=== PATIENT | male | born 1990 | race Caucasian/White ===

== ENCOUNTER → 2024-10-23 | Outpatient (CLI) | payer BC, SELFPAY ==
[2024-10-23 09:04] LABS: Microalbumin,Random Urine < 12.0 mg/L (NO RANGE EST.); Microalbumin:Creatinine Ratio UNABLE TO CALCULATE mg/g CRE
[2024-10-23 09:29] LABS: ALB/GLOB Ratio 1.6 RATIO (0.9-2.4); AST(SGOT) 16 U/L (<=37); Alanine Aminotransfer ALT/SGPT 21 U/L (<=46); Albumin, Serum 4.3 g/dL (3.5-5.0); Alkaline Phosphatase 81 U/L (40-129); Anion Gap 8 (5-15); BUN 15 mg/dL (4-19); BUN/Creat Ratio 18.1 RATIO (10-20); Carbon Dioxide 25.3 mmol/L (21.0-32.0); Chloride 104 mmol/L (98-108); Cholesterol 133 mg/dL (<=200); Creatinine, Serum 0.83 mg/dL (0.70-1.20); EST Glomerular Filtration Rate 119 (>60); Globulin 2.6 g/dL (2.2-4.2); Glucose 260 mg/dL (70-99); High Density Lipoprotein 48 mg/dL; Low Density Lipoprotein Calc. 68 mg/dL; Potassium 4.6 mmol/L (3.3-5.1); Protein, Total 6.9 g/dL (5.9-8.4); Sodium Level 138 mmol/L (133-145); Triglycerides 85 mg/dL; Very Low Density Lipoprotein 17 mg/dL (5-40); Vitamin D,25 Hydroxy 18.3 ng/mL (30-100); cholesterol:hdl ratio screen 2.75
== END | disposition home or self-care (01) ==
PROVIDERS: PCP Nurse Practitioner Adult Health; Referring Provider Nurse Practitioner Family; Visit Provider Nurse Practitioner Family
DX: E10.65 Type 1 diabetes mellitus with hyperglycemia (principal)
CPT/HCPCS: 36415; 80053; 80061; 82043; 82306; 82570; 84443

== ENCOUNTER 2025-05-07 22:38 | Emergency (ER) | payer BC, SELFPAY ==
[2025-05-07 22:43] VITALS: BP 133/73; PULSE 85; RESP 16; TEMP 36.8; O2SAT 100; BMI 24.3
--- OUTSIDE RECORDS SUMMARY | 2025-05-07 23:35 | XMS RPT_ITS | CCD ---
Author Organization [facility] Care Team Providers Care [address] Justice Name Role Phone YonyFiora Unavailable Unavailable PROVIDER, UNKNOWN Unavailable Unavailable No, PCP Unavailable Unavailable SEFFENS DEFENSE TRAVEL ADMINISTRATOR-PERSON INVESTIGATOR, SONNY Primary Care Physician PHYSICIAN, NOT RECORDED Primary Care Physician Meet LAYTON MD, MEGHA Attending Unavaila ble PHYSICIAN, NOT RECORDED Primary Care Unavaila ble SEFF[employer] TRAVEL ADMINISTRATOR-PERSON INVESTIGATOR, SONNY Primary Care Sabina LAYTON MD, MEGHA Attending Unavaila ble SEFF[employer] TRAVEL ADMINISTRATOR-PERSON INVESTIGATOR, SONNY Primary Care Sabina LAYTON MD, MEGHA Attending Unavaila ble MAST DEFENSE TRAVEL ADMINISTRATOR-PERSON INVESTIGATOR, HERBERTH Primary Care Physician [phone] MAST DEFENSE TRAVEL ADMINISTRATOR-PERSON INVESTIGATOR, HERBERTH Primary Care Unavailabl e HALLE DEFENSE TRAVEL ADMINISTRATOR-PERSON INVESTIGATOR, BIJUEDA Attending Unavailab le HALLE DEFENSE TRAVEL ADMINISTRATOR-PERSON INVESTIGATOR, BIJUEDA Attending Unavailab le MAST DEFENSE TRAVEL ADMINISTRATOR-PERSON INVESTIGATOR, HERBERTH Primary Care Unavailabl e MAST HAND RIGGER, HERBERTH Primary Care Provider [phone] MAST HAND RIGGER, HERBERTH Referring Provider Roberto LETTER CARRIER-CMiguelina Attending Provider MAST, HERBERTH Primary Care Unavailable MAST, HERBERTH Referring Unavailable Miguelina Mejia Attending Unavailable MAST, HERBERTH Primary Care Unavailable MAST, HERBERTH Referring Unavailable Miguelina Mejia Attending Unavailable Miguelina Mejia Referring Unavailable MAST, HERBERTH Primary Care Unavailable Miguelina Mejia Attending Unavailable MAST, HERBERTH Primary Care Unavailable MAST, HERBERTH Referring Unavailable Miguelina Mejia Attending Unavailable MAST HAND RIGGER, HERBERTH Primary Care Physician MAST HAND RIGGER, HERBERTH Referring Provider [phone] Roberto MAIN-Miguelina Soliman Attending Physician [phone] Allergies Allergy Classification Reported Allergen(s) Allergy Type Date of Onset Reaction(s) Facility (7 sources) Penicillin; Translations: [penicillin] Drug Allergy [facility] (4 sources) Sulfonamides (Antibiotic); Translations: [sulfa drugs] Drug allergy [facility] (3 sources) Sulfonamide; Translations: [sulfa drugs] Drug allergy [facility] (2 sources) Penicillins Allergy to substance 5 [facility] (2 sources) Sulfonamides (Antibiotic) Allergy to substance 5 [facility] (1 source) Penicillins Drug allergy (disorder) 5 [facility] (1 source) Sulfonamides (Antibiotic) Drug allergy (disorder) 5 [facility] Medications Current Medications Medication Drug Class(es) Dates Sig (Normalized) Sig (Original) Blood Glucose Test Machine (5 sources) Start: 01-08-2021 Blood Glucose Test Machine See Instructions, Dispense 1, # 1 EA, 0 Refill(s), Pharmacy: [address], Diabetes, 173, cm, 01/08/21 15:11:00 EDT, Height, 91.7, kg, 01/08/21 15:11:00 EDT, Dosing Weight Start Date: 01/08/21 Status: Ordered Blood-Glucose Sensor (Dexcom G6 Sensor) device (1 source) Start: 03-26-2025 Blood-Glucose Sensor (Dexcom G6 Sensor) device Active 0 .Route 9 March 25, 2025 11:00pm Type 1 diabetes mellitus with hyperglycemia Type 1 diabetes mellitus with hyperglycemia 1 sensor q 10 days Blood-Glucose Transmitter (Dexcom G6 Transmitter) device (1 source) Start: 03-26-2025 Blood-Glucose Transmitter (Dexcom G6 Transmitter) device Active 0 .Route 1 March 25, 2025 11:00pm Type 1 diabetes mellitus with hyperglycemia Type 1 diabetes mellitus with hyperglycemia 1 transmitter q 90 days cholecalciferol 1.25 mg oral capsule (3 sources) Vitamin D Start: 03-29-2025 take 1 capsule by mouth once Start: 10-23-2024 End: 03-29-2025 take 1 capsule by mouth every week Cholecalciferol (Vitamin D3) 1,250 mcg (50,000 unit) capsule Discontinued 1250 ug PO EVERY WEEK 12 January 08, 2025 12:16pm March 29, 2025 11:39am Vitamin d deficiency Vitamin D deficiency, unspecified DME [facility] (5 sources) Start: 11-04-2023 DME MISCellane ous See Instructions, freestyle sarbjit 3 sensors 1 sensor every 14 days #2 sensors for 28 days and 2 refill., # 1 EA, 0 Refill(s), Pharmacy: [facility] #[id number], 173.3, cm, 11/04/23 8:08:00 EDT, Height, 70.04, kg, 11/04/23 8:08:00 EDT, Dosing Weight Start Date: 11/04/23 Status: Ordered Start: 03-27-2022 DME MISCellane ous See Instructions, freestyle sarbjit 3 sensors 1 sensor every 14 days #2 sensors for 28 days and 2 refill., # 1 EA, 0 Refill(s), Pharmacy: [facility] #[id number], 175, cm, 03/26/22 15:09:00 EDT, Height, 76.3, kg, 03/26/22 15:15:00 EDT, Dosing Weight Start Date: 03/27/22 Status: Ordered 3 ml insulin degludec 100 unt/ml pen injector (3 sources) Insulin Analog Start: 07-20-2024 Insulin Deglud ec (Tresiba Flextouch U-100) 100 unit/mL (3 mL) insulin pen Active 15 U SC AT BEDTIME July 20, 2024 12:00am Complies with drug therapy Start: 11-04-2023 inject 1 dose by sub cutaneous injection once daily Tresiba FlexTouch 100 units/mL 3 mL subcutaneous solution Dose : 15 unit(s) =, Subcutaneous, qDay, # 3 EA, 1 Refill(s), Pharmacy: [facility] #[id number], 173.3, cm, 11/04/23 8:08:00 EDT, Height, kg, 11/04/23 8:08:00 EDT, Dosing Weight Start Date: 11/04/23 Status: Ordered Start: 03-26-2022 inject 1 dose by sub cutaneous injection once daily Tresiba FlexTouch 100 units/mL 3 mL subcutaneous solution Dose : 8 unit(s) =, Subcutaneous, qDay, # 10 mL, 0 Refill(s), other reason (Rx) Start Date: 03/26/22 Status: Ordered Insulin Degludec (Tresiba Flextouch U-100) 100 unit/mL (3 mL) insulin pen (1 source) Start: 07-20-2024 Insulin Deglud ec (Tresiba Flextouch U-100) 100 unit/mL (3 mL) insulin pen Active 15 U SC AT BEDTIME July 20, 2024 1:00am insulin lispro 100 unt/ml injectable solution (4 sources) Insulin Analog Start: 11-03-2024 Insulin Lispro (Humalog U-100 Insulin) 100 unit/mL solution Active 60 U SC daily 50 2 November 02, 2024 11:00pm via insulin pump Complies with drug therapy Start: 07-20-2024 End: 11-03-2024 Insulin Lispro (Humalog Kwik pen Insulin) 100 unit/mL insulin pen Discontinued 4 U SC THREE TIMES A DAY July 20, 2024 12:00am November 03, 2024 3:24pm Start: 11-04-2023 inject 1 dose by sub cutaneous injection three times daily HumaLOG KwikPen 100 units/mL injectable PEN Dose : 4 unit(s) =, Subcutaneous, TID, # 5 EA, 1 Refill(s), 3 mL PEN, [facility]acy: [facility] #[id number], 173.3, cm, 11/04/23 8:08:00 EDT, Height, kg, 11/04/23 8:08:00 EDT, Dosing Weight Start Date: 11/04/23 Status: Ordered Insulin Director Treasurer Cart,Aut,G6/7,Cn tr (Omnipod 5 G6-G7 Intro Kt(Gen5)) cartridge (2 sources) Start: 08-28-2024 Insulin Director Treasurer Ca rt,Aut,G6/7,Cntr (Omnipod 5 G6-G7 Intro Kt(Gen5)) cartridge Active 0 .Route 1 August 27, 2024 11:00pm Type 1 diabetes mellitus with hyperglycemia Type 1 diabetes mellitus with hyperglycemia As directed Start: 08-28-2024 Insulin Director Treasurer Ca rt,Aut,G6/7,Cntr (Omnipod 5 G6-G7 Intro Kt(Gen5)) cartridge Active 0 .Route 1 August 28, 2024 12:00am As directed Insulin Director Treasurer Cart,Bt,G6/L2-Cn tr (Omnipod 5 Intro(G6/Yeyvd4qtlr)) cartridge (2 sources) Start: 07-20-2024 Insulin Director Treasurer Ca rt,Bt,G6/L2-Cntr (Omnipod 5 Intro(G6/Kbcbq3kenb)) cartridge Active 0 .Route 1 July 20, 2024 12:00am Type 1 diabetes mellitus with hyperglycemia Type 1 diabetes mellitus with hyperglycemia As directed Start: 07-20-2024 Insulin Director Treasurer Ca rt,Bt,G6/L2-Cntr (Omnipod 5 Intro(G6/Enbzw6fqut)) cartridge Active 0 .Route 1 July 20, 2024 1:00am As directed Insulin Pump Cart,Auto,Bt,G6 /7 (Omnipod 5 G6-G7 Pods (Gen 5)) cartridge (3 sources) Start: 02-28-2025 Insulin Pump C art,Auto,Bt,G6/7 (Omnipod 5 G6-G7 Pods (Gen 5)) cartridge Active 0 .Route 10 February 28, 2025 2:43pm Type 1 diabetes mellitus with hyperglycemia Type 1 diabetes mellitus with hyperglycemia 1 pod every 72 hours Start: 07-20-2024 End: 02-28-2025 Insulin Pump Cart,Auto,Bt,G6 /7 (Omnipod 5 G6-G7 Pods (Gen 5)) cartridge Discontinued 0 .Route 03 11July 20, 2024 12:00am February 28, 2025 2:43pm Type 1 diabetes mellitus with hyperglycemia Type 1 diabetes mellitus with hyperglycemia 1 pod every 72 hours Start: 07-20-2024 Insulin Pump C art,Auto,Bt,G6/7 (Omnipod 5 G6-G7 Pods (Gen 5)) cartridge Active 0 .Route July 20, 2024 1:00am 1 pod every 72 hours Completed/Discontinued Medications Medication Drug Class(es) Dates Sig (Normalized) Sig (Original) Blood-Glucose Sensor (Dexcom G7 Sensor) device (3 sources) Start: 02-15-2025 End: 03-26-2025 Blood-Glucose Sensor (Dexcom G7 Sensor) device Discontinued 0 .Route 9 February 15, 2025 8:12am March 26, 2025 12:45pm Type 1 diabetes mellitus with hyperglycemia Type 1 diabetes mellitus with hyperglycemia 1 sensor q 10 days Start: 07-20-2024 End: 02-15-2025 Blood-Glucose Sensor (Dexcom G7 Sensor) device Discontinued 0 .Route 3 5 July 20, 2024 12:00am February 15, 2025 8:12am Type 1 diabetes mellitus with hyperglycemia Type 1 diabetes mellitus with hyperglycemia 1 sensor q 10 days Start: 07-20-2024 Blood-Glucose Sensor (Dexcom G7 Sensor) device Active 0 .Route 3 July 20, 2024 1:00am 1 sensor q 10 days metFORMIN hydrochloride 1000 mg oral tablet (7 sources) Biguanide Start: 07-20-2024 End: 07-20-2024 take 1 tablet by mouth once daily Metformin 1,000 mg tablet Discontinued 1000 mg PO daily July 20, 2024 12:00am July 20, 2024 2:24pm Start: 10-29-2023 End: 11-28-2023 MetFORMIN (Eqv-Glucophage XR ) 500 mg oral tablet, EXTENDED RELEASE Dose : 1,000 mg = 2 tab(s), Oral, qDay, # 60 tab(s), 0 Refill(s), Pharmacy: [facility] #[id number], 173.3, cm, 05/06/23 8:04:00 EST, Height, kg, 05/06/23 8:04:00 EST, Dosing Weight Start Date: 10/29/23 Stop Date: 11/28/23 Status: Ordered Start: 04-12-2023 End: 10-09-2023 MetFORMIN (Eqv-Glucophage XR ) 500 mg oral tablet, EXTENDED RELEASE Dose : 1,000 mg = 2 tab(s), Oral, qDay, # 60 tab(s), 5 Refill(s), Pharmacy: [facility] #[id number], 173.3, cm, 10/08/22 15:07:00 EDT, Height, kg, 10/08/22 15:07:00 EDT, Dosing Weight Start Date: 04/12/23 Stop Date: 10/09/23 Status: Ordered Start: 07-17-2022 End: 08-16-2022 MetFORMIN (Eqv-Glucophage XR ) 500 mg oral tablet, EXTENDED RELEASE Dose : 1,000 mg = 2 tab(s), Oral, qDay, 1x refill until patient can see Endocrinology, # 60 tab(s), 0 Refill(s), Pharmacy: [facility] #[id number], 173.3, cm, 06/23/22 8:05:00 EST, Height, kg, 06/23/22 8:05:00 EST, Dosing Weight Start Date: 07/17/22 Stop Date: 08/16/22 Status: Ordered Start: 03-11-2022 MetFORMIN (Eqv -Glucophage XR) 500 mg oral tablet, EXTENDED RELEASE Dose : 1,000 mg = 2 tab(s), Oral, qDay, # 60 tab(s), 3 Refill(s), Pharmacy: [facility] #[id number], 173.5, cm, 12/30/21 15:10:00 EDT, Height, kg, 12/30/21 15:10:00 EDT, Dosing Weight Start Date: 03/11/22 Status: Ordered Problems Problem Classification Problem Date Documented Date Episodic/Chronic Anxiety disorders (7 sources) Anxiety 01-16-2021 Chronic Blindness and vision defects (3 sources) Blurring of visual image 05-06-2023 Episodic Diabetes mellitus with complications (5 sources) Hyperglycemia due to type 1 diabetes mellitus; Translations: [Type 1 diabetes mellitus with hyperglycemia] Onset: 03-26-2025 07-24-2024 Chronic Diabetes mellitus without complication (17 sources) Diabetes mellitus; Translations: [Latent autoimmune diabetes mellitus in adult] Onset: 07-20-2024 01-16-2021 Chronic Diabetes mellitus without complication (2 sources) Insulin pump present; Translations: [Presence of insulin pump (external) (internal)] 10-20-2024 Episodic Disorders of lipid metabolism (5 sources) Hyperlipidemia 07-12-2022 Chronic Genitourinary symptoms and ill-defined conditions (7 sources) Increased frequency of urination 01-16-2021 Episodic Immunizations and screening for infectious disease (9 sources) Contact with and (suspected) exposure to infections with a predominantly sexual mode of transmission; Translations: [Serology positive] Onset: 02-25-2018 04-24-2021 Episodic Nutritional deficiencies (9 sources) Vitamin D deficiency; Translations: [Vitamin D deficiency, unspecified] 04-24-2021 Chronic Other inflammatory condition of skin (7 sources) Pruritus ani 02-19-2021 Episodic Other upper respiratory infections (2 sources) Acute pharyngitis, unspecified; Translations: [Acute pharyngitis, unspecified] Onset: 06-23-2024 Episodic Residual codes; unclassified (5 sources) Did not attend 06-09-2022 Episodic Comment on above: 06/09/22 Substance-related disorders (2 sources) Nicotine dependence, unspecified, uncomplicated; Translations: [Nicotine dependence, unspecified, uncomplicated] Onset: 02-25-2018 Chronic Syncope (5 sources) Syncope 07-12-2022 Episodic Results Test Name Value Interpretation Reference Range Facility Endocrinology Visit Reporton 03-26-2025 Endocrinology Visit Report [facility] [address] [place], [place] [address] OFFICE VISIT Date of Service: 03/26/25 MR#: [id number] Acct: [id number] Name: GAUTAM LUNA Rep #: [id number] : 1990 Provider: ROMINA ferrell Age/Sex: 34/M Location: [facility] Status: Signed Intake Vital Signs 10/19/24 13:46 03/26/25 13:19 Height 5 ft 9 in 5 ft 9 in Weight: 165 lb 8 oz 164 lb BMI 24.4 24.2 BP 129/76 H 130/78 H Blood Pressure Location Rt brachial Rt brachial Position Sitting Sitting Pulse 87 80 Pulse Source Monitor Monitor Pulse Oximetry (%) 96 96 Oxygen Delivery Method room air room air Intake Visit Reasons: 5 M FU, RS 01/18 Chief Complaint: f/u diabetes Allergies Penicillins Allergy (Intermediate, Verified 03/26/25 13:23) Rash Sulfa (Sulfonamide Antibiotics) Allergy (Intermediate, Verified 03/26/25 13:23) Rash Medications ???Medication ???Instructions ???Recorded ???Confirmed ???Type insulin degludec 100 unit/mL (3 15 unit subcut QHS 07/20/24 History mL) subcutaneous pen (Tresiba FlexTouch U-100 insulin) insulin pump cartridge,auto #1 ea 07/20/24 03/26/25 Rx dose,BT,G6/L2 with controller subcutaneous (Omnipod 5 Intro Kit(G6/Diokq6Exci) subcutaneous cartridge) insulin pump cartridge,auto #1 ea 08/28/24 03/26/25 Rx dose,BT,G6/G7 with controller subcutaneous (Omnipod 5 G6-G7 Intro Kit(Gen 5) subcutaneous cartridge and controller) insulin lispro 100 unit/mL 60 unit (0.6 mL) subcut QDAY #50 m L 11/03/24 03/26/25 Rx subcutaneous solution (Humalog U-100 Insulin) cholecalciferol (vitamin D3) 1,250 1,250 mcg PO QWEEK #12 caps 09/2903/26/25 Rx mcg (50,000 unit) capsule insulin pump cart,auto,BT,G6/7 #10 ea 02/28/25 03/26/25 Rx (Omnipod 5 G6-G7 Pods (Gen 5) subcutaneous cartridge) blood-glucose sensor (Dexcom G6 #9 ea 03/26/25 03/26/25 Rx Sensor device) blood-glucose transmitter (Dexcom #1 ea 03/26/25 03/26/25 Rx G6 Transmitter device) PFSH Family History Other Alcoholism Asthma Diabetes Heart disease Raynauds disease Social History Smoking Status: Current every day smoker Electronic Cigarette Use: with nicotine alcohol intake: current substance use type: does not use what type of physical activity do you participate in: walking frequency: daily HPI HPI Chief Complaint: f/u diabetes Details: GAUTAM LUNA, is a 34 M who presents to the office today for evaluation and management of diabetes. A1C today is 7.1%, improved from 10/19/24 at 7.7%. Weight is stable. Currently using Omnipod 5 with Dexcom G7. He is frustrated with connectivity of pump and CGM. [place]ooko report downloaded and reviewed- he is having post meal elevations. He is having prolonged elevations that is causing him to get kicked out of automated mode. He denies any significant episode of hypoglycemia that has required assistance from others. BP stable. Hx of vitamin D deficiency. He completed vitamin d3 50,000 iu qweek and is now taking vitamin D3 2,000 iu once daily. Labs are up to date. Denies any acute concerns. ROS Const Constitutional: No fatigue or weight change ENT ENT: No dizziness/vertigo Cardio Cardiology: No chest pain at rest, chest pain with exertion, shortness of breath or palpitations Skin Skin: No wounds Endo Endocrine: No fatigue or weight change Exam Const General: cooperative, healthy appearing, comfortable and no acute distress Nutritional Appearance: average body habitus Orientation: alert, awake and oriented x3 HENMT Head: normal to inspection Ears: hearing grossly normal bilaterally Nose: external nose normal Face and sinus: normal facial exam Eyes General: appearance normal, both eyes and all related structures Alignment and Position: alignment normal Sclera: sclerae normal Neck Neck: normal visual inspection Chest Chest palpation inspection: normal inspection of the chest Resp Effort Inspection: normal respiratory effort, able to speak in complete sentences, symmetric chest movement, normal respiratory pattern, no audible wheezes and no cough Auscultation: Bilateral: Clear to Auscultation Cardio Rate: regular rate Rhythm: regular rhythm Heart Sounds: S1 normal and S2 normal GI Inspection: normal to inspection Musc Cervical Spine: normal cervical lordosis Thoracic/Lumbar Spine: thoracic and lumbar spine normal to inspection Skin General: no rashes or lesions noted Lesions: no lesions Rashes: no rashes Trauma: no lacerations or abrasions Wounds: no wounds Neuro General: patient alert, patient awake and patient oriented x3 Cogniti (more content not included)... Normal [facility] - Hematology and Cell countsOrdered By: Miguelina Mejia on 03-26-2025 HbA1c (Bld) [Mass fraction] 7.1 % High 4.2-6.3 [facility] Comprehensive Metabolic Prof ilon 10-23-2024 Albumin [Mass/Vol] 4.3 g/dL Normal 3.5-5.0 [facility] Comment on above: Performed By: #### L 500.4100, L501.9520, L502.0250, L500.4050, L506.1001 #### [facility] [address] [place], [place], [id number] Albumin/Globulin [Mass ratio] 1.6 {ratio} Normal 0.9-2.4 [facility] Comment on above: Performed By: #### L 500.4100, L501.9520, L502.0250, L500.4050, L506.1001 #### [facility] [address] [place], [address] ALK PHOS 81 U/L Normal 40-129 [facility] Comment on above: Performed By: #### L 500.4100, L501.9520, L502.0250, L500.4050, L506.1001 #### [facility] [address] [place], [address] ALT [Catalytic activity/Vol] 21 U/L Normal <=46 [facility] Comment on above: Performed By: #### L 500.4100, L501.9520, L502.0250, L500.4050, L506.1001 #### [facility] [address] [place], [address] AST [Catalytic activity/Vol] 16 U/L Normal <=37 [facility] Comment on above: Performed By: #### L 500.4100, L501.9520, L502.0250, L500.4050, L506.1001 #### [facility] [address] [place], [address] Bilirubin [Mass/Vol] 0.30 mg/dL Normal 0.00-1.30 [facility] Comment on above: Performed By: #### L 500.4100, L501.9520, L502.0250, L500.4050, L506.1001 #### [facility] [address] [place], [address] BUN/CRE 18.1 RATIO Normal 10-20 [facility] Comment on above: Performed By: #### L 500.4100, L501.9520, L502.0250, L500.4050, L506.1001 #### [facility] [address] [place], [address] Calcium [Mass/Vol] 9.0 mg/dL Normal 7.6-11.0 [facility] Comment on above: Performed By: #### L 500.4100, L501.9520, L502.0250, L500.4050, L506.1001 #### [facility] [address] [place], [address] Chloride [Moles/Vol] 104 mmol/L Normal 98-108 [facility] Comment on above: Performed By: #### L 500.4100, L501.9520, L502.0250, L500.4050, L506.1001 #### [facility] [address] [place], [address] CO2 [Moles/Vol] 25.3 mmol/L Normal 21.0-32.0 [facility] Comment on above: Performed By: #### L 500.4100, L501.9520, L502.0250, L500.4050, L506.1001 #### [facility] [address] [place], [address] Creatinine [Mass/Vol] 0.83 mg/dL Normal 0.70-1.20 [facility] Comment on above: Performed By: #### L 500.4100, L501.9520, L502.0250, L500.4050, L506.1001 #### [facility] [address] [place], [address] GAP 8 Normal 5-15 [facility] Comment on above: Performed By: #### L 500.4100, L501.9520, L502.0250, L500.4050, L506.1001 #### [facility] [address] [place], [address] GFR/1.73 sq M.predicted among non-blacks MDRD (S/P/Bld) [Vol rate/Area] 119 mL/min/{1.73_m2} Normal >60 [facility] Comment on above: Result Comment: mL/m in/1.73m2 CKD-EPI Creatinine Equation (2020) Performed By: #### L 500.4100, L501.9520, L502.0250, L500.4050, L506.1001 #### [facility] [address] [place], [address] Globulin (S) [Mass/Vol] 2.6 g/dL Normal 2.2-4.2 [facility] Comment on above: Performed By: #### L 500.4100, L501.9520, L502.0250, L500.4050, L506.1001 #### [facility] [address] [place], [address] Glucose [Mass/Vol] 260 mg/dL High 70-99 [facility] Comment on above: Performed By: #### L 500.4100, L501.9520, L502.0250, L500.4050, L506.1001 #### [facility] [address] [place], [address] Potassium [Moles/Vol] 4.6 mmol/L Normal 3.3-5.1 [facility] Comment on above: Performed By: #### L 500.4100, L501.9520, L502.0250, L500.4050, L506.1001 #### [facility] [address] [place], [address] Sodium [Moles/Vol] 138 mmol/L Normal 133-145 [facility] Comment on above: Performed By: #### L 500.4100, L501.9520, L502.0250, L500.4050, L506.1001 #### [facility] [address] [place], [address] T PROT 6.9 g/dL Normal 5.9-8.4 [facility] Comment on above: Performed By: #### L 500.4100, L501.9520, L502.0250, L500.4050, L506.1001 #### [facility] [address] [place], [address] Urea nitrogen [Mass/Vol] 15 mg/dL Normal 4-19 [facility] Comment on above: Performed By: #### L 500.4100, L501.9520, L502.0250, L500.4050, L506.1001 #### [facility] [address] [place], [address] Lipid Profileon 10-23-2024 CHOL:HDL 2.75 Normal [facility] Comment on above: Performed By: #### L 500.4100, L501.9520, L502.0250, L500.4050, L506.1001 #### [facility] [address] [place], [address] Cholesterol [Mass/Vol] 133 mg/dL Normal <=200 [facility] Comment on above: Result Comment: Chol esterol level, Desirable <200 mg/dL Borderline high cholesterol 200-239 mg/dL High cholesterol >=240 mg/dL Recommendations of the NCEP Adult Treatment Panel for the following risk-cutoff thresholds for the [place] population. Performed By: #### L 500.4100, L501.9520, L502.0250, L500.4050, L506.1001 #### [facility] [address] [place], [address] Cholesterol in HDL [Mass/Vol] 48 mg/dL Normal [facility] Comment on above: Result Comment: Lucía onal Cholesterol Education Program (NCEP) guidelines: <40 mg/dL: Low HDL-cholesterol (major risk factor for CHD) >= 60 mg/dL: High HDL-cholesterol (negative risk factor for CHD) HDL-cholesterol is affected by a number of factors, e.g. smoking, exercise, hormones, sex and age. Performed By: #### L 500.4100, L501.9520, L502.0250, L500.4050, L506.1001 #### [facility] [address] [place], [address] Cholesterol in LDL [Mass/Vol] 68 mg/dL Normal [facility] Comment on above: Result Comment: Bord ntwsct=578-786 mg/dL Higher Jthc=364 mg/dL or greater Performed By: #### L 500.4100, L501.9520, L502.0250, L500.4050, L506.1001 #### [facility] [address] [place], [address] Cholesterol in VLDL [Mass/Vol] 17 mg/dL Normal 5-40 [facility] Comment on above: Performed By: #### L 500.4100, L501.9520, L502.0250, L500.4050, L506.1001 #### [facility] [address] [place], [address] Triglyceride [Mass/Vol] 85 mg/dL Normal [facility] Comment on above: Result Comment: The drugs N-Acetylcysteine and Metamizole may falsely depress this assay. Normal range: <150 mg/dL Borderline High: 150-199 mg/dL High: 200-499 mg/dL Very High: >500 mg/dL Performed By: #### L 500.4100, L501.9520, L502.0250, L500.4050, L506.1001 #### [facility] [address] [place], [address] Microalb:Creat Ratio,Random URon 10-23-2024 Creatinine [Mass/Vol] 162.00 mg/dL Normal 39.00-259.0 0 [facility] Comment on above: Performed By: #### L 500.4100, L501.9520, L502.0250, L500.4050, L506.1001 #### [facility] [address] [place], [address] MALB:CREAT UNABLE TO CALCULATE Normal [facility] Comment on above: Performed By: #### L 500.4100, L501.9520, L502.0250, L500.4050, L506.1001 #### [facility] [address] [place], [address] MICROALBUMIN,UR < 12.0 Normal NO RANGE EST. [facility] Comment on above: Performed By: #### L 500.4100, L501.9520, L502.0250, L500.4050, L506.1001 #### [facility] [address] [place], [address] Thyroid Stim Hormone (TSH)on 10-23-2024 TSH 2.750 uIU/mL Normal 0.300-4.200 [facility] Comment on above: Performed By: #### L 500.4100, L501.9520, L502.0250, L500.4050, L506.1001 #### [facility] [address] [place], [address] Vitamin D,25 Hydroxyon 10-23 Vitamin D 25-OH 18.3 ng/mL Low 30-100 [facility] Comment on above: Result Comment: Lauren min D Status Deficiency: <20 ng/mL (50nmol/L) Insufficiency: 20-30 ng/mL (50-75 nmol/L) Sufficiency: 30-100 ng/mL (75-250 nmol/L) Toxicity: >100 ng/mL (>250 nmol/L) Performed By: #### L 500.4100, L501.9520, L502.0250, L500.4050, L506.1001 #### [facility] [address] [place], [address] Endocrinology Visit Reporton 10-19-2024 Endocrinology Visit Report [facility] [address] [place], [place] [address] OFFICE VISIT Date of Service: 10/19/24 MR#: [id number] Acct: [id number] Name: GAUTAM LUNA Rep #: [id number] : 1990 Provider: ROMINA ferrell Age/Sex: 33/M Location: [facility] Status: Signed Intake Vital Signs 07/20/24 13:25 10/19/24 13:46 Height 5 ft 9 in 5 ft 9 in Weight: 169 lb 4 oz 165 lb 8 oz BMI 25.0 24.4 BP 115/80 129/76 H Blood Pressure Location Lt brachial Rt brachial Position Sitting Sitting Pulse 76 87 Pulse Source Monitor Monitor Pulse Oximetry (%) 94 96 Oxygen Delivery Method room air room air Intake Visit Reasons: 3 M FU Chief Complaint: f/u diabetes Is patient in pain?: No Allergies Penicillins Allergy (Intermediate, Verified 10/19/24 13:50) Rash Sulfa (Sulfonamide Antibiotics) Allergy (Intermediate, Verified 10/19/24 13:50) Rash Medications ???Medication ???Instructions ???Recorded ???Confirmed ???Type blood-glucose sensor (Dexcom G7 #3 ea 07/20/24 10/19/24 Rx Sensor device) insulin degludec 100 unit/mL (3 15 unit subcut QHS 07/20/24 History mL) subcutaneous pen (Tresiba FlexTouch U-100 insulin) insulin lispro 100 unit/mL 4 unit subcut TID 07/20/24 5 History subcutaneous pen (Humalog KwikPen (U-100) Insulin) insulin pump cart,auto,BT,G6/7 #10 ea 07/20/24 10/19/24 Rx (Omnipod 5 G6-G7 Pods (Gen 5) subcutaneous cartridge) insulin pump cartridge,auto #1 ea 07/20/24 10/19/24 Rx dose,BT,G6/L2 with controller subcutaneous (Omnipod 5 Intro Kit(G6/Ccfgt4Tofe) subcutaneous cartridge) insulin pump cartridge,auto #1 ea 08/28/24 10/19/24 Rx dose,BT,G6/G7 with controller subcutaneous (Omnipod 5 G6-G7 Intro Kit(Gen 5) subcutaneous cartridge and controller) PFSH Family History Other Alcoholism Asthma Diabetes Heart disease Raynauds disease Social History Smoking Status: Current every day smoker Electronic Cigarette Use: with nicotine alcohol intake: current substance use type: does not use what type of physical activity do you participate in: walking frequency: daily HPI HPI Chief Complaint: f/u diabetes Details: GAUTAM LUNA, is a 33 M who presents to the office today for evaluation and management of diabetes. A1C today is 7.7%, essentially unchanged from 07/20/24 at 7.8%. He has lost 4 lbs since that time. He recently started Omnipod 5 with Dexcom G7 2-3 weeks ago. He is pleased with system. He states that blood sugar typically will go low while he is working as his job is very physical. He is entering carbs S, M, L, but will also enter actual carbs if count is available. He has tried activity mode; however, he feels that as his job is so physical, activity mode target is not adequate. He will at times not bolus for food while at work to avoid lows. He denies any significant episode of hypoglycemia that has required assistance from others. BP is controlled. He is due for labs. Denies any acute concerns. ROS Const Constitutional: No fatigue or weight change ENT ENT: No dizziness/vertigo Cardio Cardiology: No chest pain at rest, chest pain with exertion, shortness of breath or palpitations Skin Skin: No wounds Endo Endocrine: No fatigue or weight change Exam Const General: cooperative, healthy appearing, comfortable and no acute distress Nutritional Appearance: average body habitus Orientation: alert, awake and oriented x3 HENMT Head: normal to inspection Ears: hearing grossly normal bilaterally Nose: external nose normal Face and sinus: normal facial exam Eyes General: appearance normal, both eyes and all related structures Alignment and Position: alignment normal Sclera: sclerae normal Neck Neck: normal visual inspection Chest Chest palpation inspection: normal inspection of the chest Resp Effort Inspection: normal respiratory effort, able to speak in complete sentences, symmetric chest movement, normal respiratory pattern, no audible wheezes and no cough Auscultation: Bilateral: Clear to Auscultation Cardio Rate: regular rate Rhythm: regular rhythm Heart Sounds: S1 normal and S2 normal Bruits: no carotid bruits GI Inspection: normal to inspection Musc Cervical Spine: normal cervical lordosis Thoracic/Lumbar Spine: thoracic and lumbar spine normal to inspection Skin General: no rashes or lesions noted Lesions: no lesions Rashes: no rashes Trauma: no lacerations or abrasions Wounds: no wounds Neuro General: patient alert, patient awake and patient oriented x3 Cognition: normal cognition Speech: speech normal Gait: normal gait Extrem (more content not included)... Normal [facility] Endocrinology Visit Reporton 07-20-2024 Endocrinology Visit Report [facility] [address] [place] [address] OFFICE VISIT Date of Service: 07/20/24 MR#: [id number] Acct: [id number] Name: GAUTAM LUNA Rep #: [id number] : 1990 Provider: ROMINA ferrell Age/Sex: 33/M Location: [facility] Status: Signed Intake Vital Signs 07/20/24 13:25 Height 5 ft 9 in Weight: 169 lb 4 oz BMI 25.0 BP 115/80 Blood Pressure Location Lt brachial Position Sitting Pulse 76 Pulse Source Monitor Pulse Oximetry (%) 94 Oxygen Delivery Method room air Intake Visit Reasons: Diabetes Chief Complaint: establish care- diabetes Is patient in pain?: No Allergies Penicillins Allergy (Intermediate, Verified 07/20/24 13:21) Rash Sulfa (Sulfonamide Antibiotics) Allergy (Intermediate, Verified 07/20/24 13:21) Rash Medications ???Medication ???Instructions ???Recorded ???Confirmed ???Type blood-glucose sensor (Dexcom G7 #3 ea 07/20/24 07/20/24 Rx Sensor device) insulin degludec 100 unit/mL (3 15 unit subcut QHS 07/20/24 History mL) subcutaneous pen (Tresiba FlexTouch U-100 insulin) insulin lispro 100 unit/mL 4 unit subcut TID 07/20/24 5 History subcutaneous pen (Humalog KwikPen (U-100) Insulin) insulin pump cart,auto,BT,G6/7 #10 ea 07/20/24 07/20/24 Rx (Omnipod 5 G6-G7 Pods (Gen 5) subcutaneous cartridge) insulin pump cartridge,auto #1 ea 07/20/24 07/20/24 Rx dose,BT,G6/L2 with controller subcutaneous (Omnipod 5 Intro Kit(G6/Jcdlg9Vzqt) subcutaneous cartridge) PFSH Family History Other Alcoholism Asthma Diabetes Heart disease Raynauds disease Social History Smoking Status: Current every day smoker Electronic Cigarette Use: with nicotine alcohol intake: current substance use type: does not use what type of physical activity do you participate in: walking frequency: daily HPI HPI Chief Complaint: establish care- diabetes Details: GAUTAM LUNA, is a 33 M who presents to the office today for evaluation and management of diabetes. Transferring care from out of town endocrinology office. He was diagnosed with diabetes around 2019- 2020, + family history of diabetes, denies any known complications. He was diagnosed as type 1.5 at that time and placed on metformin only. 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 Currently taking Tresiba 10 u once daily, Humalog 3-6 u TIDCM, and metformin 1 gm BID. CGM tracings- he is having baseline elevations with post meal elevations. A1C today is 7.8%, increased from 04/21/24 at 7.4%. He admits that he has been off track with his diabetes lately. He is interested in insulin pump therapy. He has a vitamin D deficiency. He is not currently taking any supplement. Labs are up to date and unremarkable. Denies any acute concerns. ROS Const Constitutional: No fatigue or weight change ENT ENT: No dizziness/vertigo Cardio Cardiology: No chest pain at rest, chest pain with exertion, shortness of breath or palpitations Skin Skin: No wounds Endo Endocrine: No fatigue or weight change Exam Const General: cooperative, healthy appearing, comfortable and no acute distress Nutritional Appearance: average body habitus Orientation: alert, awake and oriented x3 HENMT Head: normal to inspection Ears: hearing grossly normal bilaterally Nose: external nose normal Face and sinus: normal facial exam Eyes General: appearance normal, both eyes and all related structures Alignment and Position: alignment normal Sclera: sclerae normal Neck Neck: normal visual inspection Carotids: normal carotid upstroke Chest Chest palpation inspection: normal inspection of the chest Resp Effort Inspection: normal respiratory effort, able to speak in complete sentences, symmetric chest movement, normal respiratory pattern, no audible wheezes and no cough Auscultation: Bilateral: Clear to Auscultation Cardio Rate: regular rate Rhythm: regular rhythm Heart Sounds: S1 normal and S2 normal GI Inspection: normal to inspection Musc Cervical Spine: normal cervical lordosis Thoracic/Lumbar Spine: thoracic and lumbar spine normal to inspection Skin General: no rashes or lesions noted Lesions: no lesions Rashes: no rashes Trauma: no lacerations or abrasions Wounds: no wounds Neuro General: patient alert, patient awake and patient oriented x3 Cognition: normal cognition Speech: speech normal Gait: normal gait Extrem General: normal to inspection and no pedal edema Psych Appearance: grossly normal Mental Status: mental status grossly normal (more content not included)... Normal [facility] - Hematology and Cell countsOrdered By: Miguelina Mejia on 07-20-2024 HbA1c (Bld) [Mass fraction] 7.8 % High 4.2-6.3 [facility] STREPAon 06-24-2024 Group A Strep PCR Detected Abnormal Not Detected [facility] Comment on above: Performed By: #### S JENNIE #### [place] [address] Group A Strep PCR Int Normal [facility] Comment on above: Result Comment: Posi tive Results: Positive for Streptococcus pyogenes by PCR. Positive test results do not rule out co-infection with other pathogens. Test results should be interpreted in conjunction with other laboratory and clinical data. The Xpert Xpress Strep A Assay is a real-time polymerase chain reaction (PCR) based qualitative in vitro diagnostic test for the direct detection of Streptococcus pyogenes (Group A Beta hemolytic Streptococcus) in throat swab specimens from patients with signs and symptoms of pharyngitis. The assay is not intended to monitor treatment for Group A Streptococcus infections. See Interp Performed By: #### S JENNIE #### [place] [address] LABORATORYOrdered By: Anayeli Carlin on 06-23-2024 Group A Strep PCR Int Positive Results: Positive for Streptococcus pyogenes by PCR. Positive test results do not rule out co-infection with other pathogens. Test results should be interpreted in conjunction with other laboratory and clinical data.The Xpert Xpress Strep A Assay is a real-time polymerase chain reaction (PCR) based qualitative in vitro diagnostic test for the direct detection of Streptococcus pyogenes (Group A Beta hemolytic Streptococcus) in throat swab specimens from patients with signs and symptoms of pharyngitis.The assay is not intended to monitor treatment for Group A Streptococcus infections. Invalid Interpretation Code AO Auto Urine SS S. pyogenes DNA KERRY+probe Ql (Throat) Detected *ABN* (06/23/24 3:34 PM) Invalid Interpretation Code AO Auto Urine SS .GFRon 11-04-2023 GFR 129 ml/min/1.73sqm Normal [facility] ([place]) Comment on above: Result Comment: GFR Population mean for , Non- Americans Ages 20-29 = 116 mL/min/1.73 sq.m. Ages 30-39 = 107 mL/min/1.73 sq.m. Ages 40-49 = 99 mL/min/1.73 sq.m. Ages 50-59 = 93 mL/min/1.73 sq.m. Ages 60-69 = 85 mL/min/1.73 sq.m. Ages 70+ = 75 mL/min/1.73 sq.m. Chronic Kidney Disease: Less than 60 mL/min/1.73 square meters End Stage Renal Disease: Less than 15 mL/min/1.73 square meters Performed By: #### C MP, VIDH, GFR, GADCAB, A1C, LIPID, TSH #### [place] [address] [place], [place] [address] #### CPEP #### [address] [address] GFR Non- 107 ml/min/1.73sqm Normal [facility] ([place]) Comment on above: Result Comment: GFR Population mean for , Non- Americans Ages 20-29 = 116 mL/min/1.73 sq.m. Ages 30-39 = 107 mL/min/1.73 sq.m. Ages 40-49 = 99 mL/min/1.73 sq.m. Ages 50-59 = 93 mL/min/1.73 sq.m. Ages 60-69 = 85 mL/min/1.73 sq.m. Ages 70+ = 75 mL/min/1.73 sq.m. Chronic Kidney Disease: Less than 60 mL/min/1.73 square meters End Stage Renal Disease: Less than 15 mL/min/1.73 square meters Performed By: #### C MP, VIDH, GFR, GADCAB, A1C, LIPID, TSH #### [place] [address] #### CPEP #### [address] [address] [facility] 11-04-2023 Albumin Level 4.2 G/dL Normal 3.5-5.0 [facility] ([place] Comment on above: Performed By: #### C MP, VIDH, GFR, GADCAB, A1C, LIPID, TSH #### [place] [address] #### CPEP #### [address] [address] Albumin/Globulin [Mass ratio] 1.3 {ratio} Normal 1.1-2.5 [facility] ([place]) Comment on above: Performed By: #### C MP, VIDH, GFR, GADCAB, A1C, LIPID, TSH #### [address] [address] #### CPEP #### [address] [address] ALP [Catalytic activity/Vol] 89 U/L Normal 40-135 [facility] ([place]) Comment on above: Performed By: #### C MP, VIDH, GFR, GADCAB, A1C, LIPID, TSH #### [address] [address] #### CPEP #### [address] [address] ALT [Catalytic activity/Vol] 24 U/L Normal 16-63 [facility] ([place]) Comment on above: Performed By: #### C MP, VIDH, GFR, GADCAB, A1C, LIPID, TSH #### [address] [address] #### CPEP #### [address] [address] AST [Catalytic activity/Vol] 9 U/L Low 10-40 [facility] ([place] Comment on above: Performed By: #### C MP, VIDH, GFR, GADCAB, A1C, LIPID, TSH #### [place] [address] #### CPEP #### [address] [address] Bili Total 0.9 mg/dL Normal 0.2-1.0 [facility] ([place]) Comment on above: Result Comment: Use of this assay is not recommended for patients undergoing treatment with eltrombopag due to the potential for falsely elevated results. Performed By: #### C MP, VIDH, GFR, GADCAB, A1C, LIPID, TSH #### [place] [address] #### CPEP #### [address] [address] BUN/Creatinine Ratio 29 ratio High 7-27 [facility] ([place]) Comment on above: Performed By: #### C MP, VIDH, GFR, GADCAB, A1C, LIPID, TSH #### [place] [address] #### CPEP #### [address] [address] Calcium [Mass/Vol] 9.1 mg/dL Normal 8.4-10.2 [facility] ([place]) Comment on above: Performed By: #### C MP, VIDH, GFR, GADCAB, A1C, LIPID, TSH #### [address] [address] #### CPEP #### [address] [address] Chloride [Moles/Vol] 100 mmol/L Normal 98-107 [facility] ([place]) Comment on above: Performed By: #### C MP, VIDH, GFR, GADCAB, A1C, LIPID, TSH #### [address] [address] #### CPEP #### [address] [address] CO2 [Moles/Vol] 27 mmol/L Normal 22-29 [facility] ([place] Comment on above: Performed By: #### C MP, VIDH, GFR, GADCAB, A1C, LIPID, TSH #### [place] [address] #### CPEP #### [place] [address] Creatinine [Mass/Vol] 0.84 mg/dL Normal 0.70-1.30 [facility] ([place]) Comment on above: Performed By: #### C MP, VIDH, GFR, GADCAB, A1C, LIPID, TSH #### [place] [address] #### CPEP #### [address] [address] Electrolyte Balance 10.0 mEq/L Normal 4.0-15.0 [facility] ([place]) Comment on above: Performed By: #### C MP, VIDH, GFR, GADCAB, A1C, LIPID, TSH #### [place] [address] #### CPEP #### [address] [address] Globulin 3.3 G/dL Normal [facility] ([place]) Comment on above: Performed By: #### C MP, VIDH, GFR, GADCAB, A1C, LIPID, TSH #### [place] [address] #### CPEP #### [address] [address] Glucose [Mass/Vol] 249 mg/dL High 70-105 [facility] ([place]) Comment on above: Performed By: #### C MP, VIDH, GFR, GADCAB, A1C, LIPID, TSH #### [address] [address] #### CPEP #### [address] [address] Potassium [Moles/Vol] 5.3 mmol/L High 3.5-5.1 [facility] ([place]) Comment on above: Performed By: #### C MP, VIDH, GFR, GADCAB, A1C, LIPID, TSH #### [address] [address] #### CPEP #### [address] [address] Sodium [Moles/Vol] 137 mmol/L Normal 136-145 [facility] ([place]) Comment on above: Performed By: #### C MP, VIDH, GFR, GADCAB, A1C, LIPID, TSH #### [place] [address] #### CPEP #### [address] [address] Total Protein 7.5 G/dL Normal 6.4-8.2 [facility] ([place] Comment on above: Performed By: #### C MP, VIDH, GFR, GADCAB, A1C, LIPID, TSH #### [address] [address] #### CPEP #### [address] [address] Urea nitrogen [Mass/Vol] 24 mg/dL High 7-18 [facility] ([place]) Comment on above: Performed By: #### C MP, VIDH, GFR, GADCAB, A1C, LIPID, TSH #### [place] [address] #### CPEP #### [address] [address] CPEPon 11-04-2023 C-Peptide 0.75 ng/mL Low 0.81-3.85 [facility] ([place]) Comment on above: Performed By: #### C MP, VIDH, GFR, GADCAB, A1C, LIPID, TSH #### [place] [address] [place], [place] [address] #### CPEP #### [address] [address] LABORATORYOrdered By: Soheila Gallo on 11-04-2023 Albumin DL <= 20 mg/L (U) [Mass/Vol] 1009 mcg/dL Invalid Interpretation Code AO ADM SS Albumin/Creatinine DL <= 20 mg/L (U) [Mass ratio] 21 mcg/mg Normal 0 - 30 mcg/mg AO ADM SS Creatinine (U) [Mass/Vol] 48.3 mg/dL Normal 39.0 - 259.0 mg/dL AO ADM SS Cholesterol [Mass/Vol] 137 mg/dL Normal 0 - 200 mg/dL AO ADM SS Comment on above: Interpretive Data: C holesterol Reference Interval: Less than 200 Desirable 200-239 Borderline high risk 240 and above High risk Cholesterol in HDL [Mass/Vol] 44 mg/dL Normal 40 - 60 mg/dL AO ADM SS Cholesterol in LDL [Mass/Vol] 83 mg/dL Normal 0 - 130 mg/dL AO ADM SS Triglyceride [Mass/Vol] 48 mg/dL Normal 0 - 150 mg/dL AO ADM SS Comment on above: Interpretive Data: T riglyceride Reference Interval: Less than 150 Normal 150-199 Borderline high risk 200-499 High risk 500 or higher Very high risk LABORATORYOrdered By: SYSTEM SYSTEM on 11-04-2023 25-hydroxyvitamin D3 [Mass/Vol] 20.7 ng/mL Invalid Interpretation Code AO ADM SS Comment on above: Interpretive Data: I nterpretive Values Based on Total 25(OH) Vitamin D: Deficient <20 ng/mL Insufficient 20 - <30 ng/mL Sufficient 30-100 ng/mL Albumin BCP dye [Mass/Vol] 4.2 G/dL Normal 3.5 - 5.0 G/dL AO ADM SS Albumin/Globulin [Mass ratio] 1.3 {ratio} Normal 1.1 - 2.5 ratio AO ADM SS ALP [Catalytic activity/Vol] 89 U/L Normal 40 - 135 U/L AO ADM SS ALT With P-5'-P [Catalytic activity/Vol] 24 U/L Normal 16 - 63 U/L AO ADM SS AST With P-5'-P [Catalytic activity/Vol] 9 U/L Low 10 - 40 U/L AO ADM SS Bilirubin [Mass/Vol] 0.9 mg/dL Normal 0.2 - 1 .0 mg/dL AO ADM SS Comment on above: Interpretive Data: U se of this assay is not recommended for patients undergoing treatment with eltrombopag due to the potential for falsely elevated results. C peptide [Mass/Vol] 0.75 ng/mL Low 0.81 - 3.85 ng/mL AH ADM SS Calcium [Mass/Vol] 9.1 mg/dL Normal 8.4 - 10. 2 mg/dL AO ADM SS Chloride [Moles/Vol] 100 mmol/L Normal 98 - 10 7 mmol/L AO ADM SS CO2 [Moles/Vol] 27 mmol/L Normal 22 - 29 mmol/L AO ADM SS Creatinine [Mass/Vol] 0.84 mg/dL Normal 0.70 - 1.30 mg/dL AO ADM SS Electrolyte Balance 10.0 mEq/L Normal 4.0 - 15 .0 mEq/L AO ADM SS GFR/1.73 sq M.predicted among blacks MDRD (S/P/Bld) [Vol rate/Area] 129 ml/min/1.73sqm Invalid Interpretation Code AO Chemistry S Comment on above: Interpretive Data: GFR Population mean for , Non- Americans Ages 20-29 = 116 mL/min/1.73 sq.m. Ages 30-39 = 107 mL/min/1.73 sq.m. Ages 40-49 = 99 mL/min/1.73 sq.m. Ages 50-59 = 93 mL/min/1.73 sq.m. Ages 60-69 = 85 mL/min/1.73 sq.m. Ages 70+ = 75 mL/min/1.73 sq.m. Chronic Kidney Disease: Less than 60 mL/min/1.73 square meters End Stage Renal Disease: Less than 15 mL/min/1.73 square meters GFR/1.73 sq M.predicted among non-blacks MDRD (S/P/Bld) [Vol rate/Area] 107 ml/min/1.73sqm Invalid Interpretation Code AO Chemistry S Comment on above: Interpretive Data: GFR Population mean for , Non- Americans Ages 20-29 = 116 mL/min/1.73 sq.m. Ages 30-39 = 107 mL/min/1.73 sq.m. Ages 40-49 = 99 mL/min/1.73 sq.m. Ages 50-59 = 93 mL/min/1.73 sq.m. Ages 60-69 = 85 mL/min/1.73 sq.m. Ages 70+ = 75 mL/min/1.73 sq.m. Chronic Kidney Disease: Less than 60 mL/min/1.73 square meters End Stage Renal Disease: Less than 15 mL/min/1.73 square meters Globulin 3.3 G/dL Invalid Interpretation Code AO ADM SS Glucose [Mass/Vol] 249 mg/dL High 70 - 105 mg/dL AO ADM SS Potassium [Moles/Vol] 5.3 mmol/L High 3.5 - 5.1 mmol/L AO ADM SS Protein [Mass/Vol] 7.5 G/dL Normal 6.4 - 8.2 G/dL AO ADM SS Sodium [Moles/Vol] 137 mmol/L Normal 136 - 145 mmol/L AO ADM SS TSH Qn 1.88 m[IU]/L Normal 0.36 - 3.74 mcIU/mL AO ADM SS Urea nitrogen [Mass/Vol] 24 mg/dL High 7 - 18 mg/dL AO ADM SS Urea nitrogen/Creatinine [Mass ratio] 29 ratio High 7 - 27 ratio AO ADM SS LIPIDon 11-04-2023 Cholesterol [Mass/Vol] 137 mg/dL Normal 0-200 [facility] ([place] Comment on above: Result Comment: Chol esterol Reference Interval: Less than 200 Desirable 200-239 Borderline high risk 240 and above High risk Performed By: #### C MP, VIDH, GFR, GADCAB, A1C, LIPID, TSH #### [address] [address] #### CPEP #### [address] [address] Cholesterol in HDL [Mass/Vol] 44 mg/dL Normal 40-60 [facility] ([place] Comment on above: Performed By: #### C MP, VIDH, GFR, GADCAB, A1C, LIPID, TSH #### [address] [address] #### CPEP #### [address] [address] Cholesterol in LDL [Mass/Vol] 83 mg/dL Normal 0-130 [facility] ([place] Comment on above: Performed By: #### C MP, VIDH, GFR, GADCAB, A1C, LIPID, TSH #### [place] [address] #### CPEP #### [address] [address] Triglyceride [Mass/Vol] 48 mg/dL Normal 0-150 [facility] ([place] Comment on above: Result Comment: Trig lyceride Reference Interval: Less than 150 Normal 150-199 Borderline high risk 200-499 High risk 500 or higher Very high risk Performed By: #### C MP, VIDH, GFR, GADCAB, A1C, LIPID, TSH #### [place] [address] #### CPEP #### [address] [address] MALBRon 05-2023 U Creatinine 48.3 mg/dL Normal 39.0-259.0 [facility] [facility] ([place]) Comment on above: Performed By: #### C MP, VIDH, GFR, GADCAB, A1C, LIPID, TSH #### [address] [address] #### CPEP #### [address] [address] U Microalb 1009 mcg/dL Normal [facility] ([place]) Comment on above: Performed By: #### C MP, VIDH, GFR, GADCAB, A1C, LIPID, TSH #### [address] [address] #### CPEP #### [address] [address] U Ratio Alb/Cre 21 mcg/mg Normal 0-30 [facility] ([place]) Comment on above: Performed By: #### C MP, VIDH, GFR, GADCAB, A1C, LIPID, TSH #### [place] [address] #### CPEP #### [place] [address] TSHon 11-04-2023 TSH Qn 1.88 m[IU]/L Normal 0.36-3.74 [facility] ([place]) Comment on above: Performed By: #### L IPID, GFR, CMP, TSH, VIDH #### [place] [address] #### CPEP #### [place] [address] VIDHon 11-04-2023 Vit. D 25-Hydroxy 20.7 ng/mL Normal [facility] ([place]) Comment on above: Result Comment: Inte rpretive Values Based on Total 25(OH) Vitamin D: Deficient <20 ng/mL Insufficient 20 - <30 ng/mL Sufficient 30-100 ng/mL Performed By: #### C MP, VIDH, GFR, GADCAB, A1C, LIPID, TSH #### [place] [address] #### CPEP #### [place] [address] A1Con 06-18-2023 HbA1c (Bld) [Mass fraction] 6.2 % Normal 4.3-6.4 [facility] ([place]) Comment on above: Performed By: #### A 1C #### [place] [id number] 04-16-2023 Glutamic Ac Decar Ab >120.0 High <=5.0 [facility] ([place]) Comment on above: Result Comment: Anti -glutamic acid decarboxylase antibody (GAD65) test usually in conjunction with another test such as IA-2 antibody is used as an aid in establishing the autoimmune nature of previously-diagnosed type I diabetes mellitus or in predicting of progression to type I diabetes mellitus in patients with certain autoimmune diseases including autoimmune gastritis among others. It is also used as an aid in diagnosis of stiff person syndrome and certain autoimmune nervous system diseases. Clinical correlation is required. Performed By: [facility] [address] [place] [address] [employer]er: Martin Guzman III, M.D. CLIA#: [id number] Performed By: #### C MP, VIDH, GFR, GADCAB, A1C, LIPID, TSH #### [address] [address] #### CPEP #### [address] [address] Glutamic Acid Decarboxylase Ql Positive Abnormal Negative [facility] ([place]) Comment on above: Result Comment: Perf ormed By: [facility] [place] [address] [employer]er: Martin Guzman III, M.D. CLIA#: [id number] Performed By: #### C MP, VIDH, GFR, GADCAB, A1C, LIPID, TSH #### [address] [address] #### CPEP #### [address] [address] .GFRon 04-14-2023 GFR 113 ml/min/1.73sqm Normal [facility] ([place]) Comment on above: Result Comment: GFR Population mean for , Non- Americans Ages 20-29 = 116 mL/min/1.73 sq.m. Ages 30-39 = 107 mL/min/1.73 sq.m. Ages 40-49 = 99 mL/min/1.73 sq.m. Ages 50-59 = 93 mL/min/1.73 sq.m. Ages 60-69 = 85 mL/min/1.73 sq.m. Ages 70+ = 75 mL/min/1.73 sq.m. Chronic Kidney Disease: Less than 60 mL/min/1.73 square meters End Stage Renal Disease: Less than 15 mL/min/1.73 square meters Performed By: #### C MP, VIDH, GFR, GADCAB, A1C, LIPID, TSH #### [address] [address] #### CPEP #### [address] [address] GFR Non- 94 ml/min/1.73sqm Normal [facility] ([place]) Comment on above: Result Comment: GFR Population mean for , Non- Americans Ages 20-29 = 116 mL/min/1.73 sq.m. Ages 30-39 = 107 mL/min/1.73 sq.m. Ages 40-49 = 99 mL/min/1.73 sq.m. Ages 50-59 = 93 mL/min/1.73 sq.m. Ages 60-69 = 85 mL/min/1.73 sq.m. Ages 70+ = 75 mL/min/1.73 sq.m. Chronic Kidney Disease: Less than 60 mL/min/1.73 square meters End Stage Renal Disease: Less than 15 mL/min/1.73 square meters Performed By: #### C MP, VIDH, GFR, GADCAB, A1C, LIPID, TSH #### [address] [address] #### CPEP #### [address] 04-14-2023 HbA1c (Bld) [Mass fraction] 10.3 % High 4.3-6.4 [facility] ([place]) Comment on above: Performed By: #### C MP, VIDH, GFR, GADCAB, A1C, LIPID, TSH #### [address] [address] #### CPEP #### [address] [address] CMPon 04-14-2023 Albumin Level 2.4 G/dL Low 3.5-5.0 [facility] ([place]) Comment on above: Performed By: #### C MP, VIDH, GFR, GADCAB, A1C, LIPID, TSH #### [address] [address] #### CPEP #### [address] [address] Albumin/Globulin [Mass ratio] 0.5 {ratio} Low 1.1-2.5 [facility] ([place]) Comment on above: Performed By: #### C MP, VIDH, GFR, GADCAB, A1C, LIPID, TSH #### [place] [address] #### CPEP #### [address] [address] ALP [Catalytic activity/Vol] 111 U/L Normal 40-135 [facility] ([place]) Comment on above: Performed By: #### C MP, VIDH, GFR, GADCAB, A1C, LIPID, TSH #### [place] [address] #### CPEP #### [address] [address] ALT [Catalytic activity/Vol] 39 U/L Normal 16-63 [facility] ([place]) Comment on above: Performed By: #### C MP, VIDH, GFR, GADCAB, A1C, LIPID, TSH #### [place] [address] #### CPEP #### [place] [address] AST [Catalytic activity/Vol] 13 U/L Normal 10-40 [facility] ([place]) Comment on above: Performed By: #### C MP, VIDH, GFR, GADCAB, A1C, LIPID, TSH #### [place] [address] #### CPEP #### [place] [id number] Bili Total 0.7 mg/dL Normal 0.2-1.0 [facility] ([place]) Comment on above: Result Comment: Use of this assay is not recommended for patients undergoing treatment with eltrombopag due to the potential for falsely elevated results. Performed By: #### C MP, VIDH, GFR, GADCAB, A1C, LIPID, TSH #### [place] [address] #### CPEP #### [place] [address] BUN/Creatinine Ratio 26 ratio Normal 7-27 [facility] ([place]) Comment on above: Performed By: #### C MP, VIDH, GFR, GADCAB, A1C, LIPID, TSH #### [address] [address] #### CPEP #### [address] [address] Calcium [Mass/Vol] 9.1 mg/dL Normal 8.4-10.2 [facility] ([place]) Comment on above: Performed By: #### C MP, VIDH, GFR, GADCAB, A1C, LIPID, TSH #### [address] [address] #### CPEP #### [address] [address] Chloride [Moles/Vol] 99 mmol/L Normal 98-107 [facility] ([place]) Comment on above: Performed By: #### C MP, VIDH, GFR, GADCAB, A1C, LIPID, TSH #### [address] [address] #### CPEP #### [address] [address] CO2 [Moles/Vol] 29 mmol/L Normal 22-29 [facility] ([place]) Comment on above: Performed By: #### C MP, VIDH, GFR, GADCAB, A1C, LIPID, TSH #### [address] [address] #### CPEP #### [address] [address] Creatinine [Mass/Vol] 0.94 mg/dL Normal 0.70-1.30 [facility] ([place]) Comment on above: Performed By: #### C MP, VIDH, GFR, GADCAB, A1C, LIPID, TSH #### [address] [address] #### CPEP #### [address] [address] Electrolyte Balance 8.0 mEq/L Normal 4.0-15.0 [facility] ([place]) Comment on above: Performed By: #### C MP, VIDH, GFR, GADCAB, A1C, LIPID, TSH #### [address] [address] #### CPEP #### [address] [address] Globulin 4.8 G/dL Normal [facility] ([place]) Comment on above: Performed By: #### C MP, VIDH, GFR, GADCAB, A1C, LIPID, TSH #### [address] [address] #### CPEP #### [address] [address] Glucose [Mass/Vol] 317 mg/dL High 70-105 [facility] ([place]) Comment on above: Performed By: #### C MP, VIDH, GFR, GADCAB, A1C, LIPID, TSH #### [place] [address] #### CPEP #### [address] [address] Potassium [Moles/Vol] 4.5 mmol/L Normal 3.5-5.1 [facility] ([place]) Comment on above: Performed By: #### C MP, VIDH, GFR, GADCAB, A1C, LIPID, TSH #### [address] [address] #### CPEP #### [address] [address] Sodium [Moles/Vol] 136 mmol/L Normal 136-145 [facility] ([place]) Comment on above: Performed By: #### C MP, VIDH, GFR, GADCAB, A1C, LIPID, TSH #### [address] [address] #### CPEP #### [address] [address] Total Protein 7.2 G/dL Normal 6.4-8.2 [facility] ([place]) Comment on above: Performed By: #### C MP, VIDH, GFR, GADCAB, A1C, LIPID, TSH #### [address] [address] #### CPEP #### [place] [address] Urea nitrogen [Mass/Vol] 24 mg/dL High 7-18 [facility] ([place]) Comment on above: Performed By: #### C MP, VIDH, GFR, GADCAB, A1C, LIPID, TSH #### [address] [address] #### CPEP #### [place] [address] CPEPon 04-14-2023 C-Peptide 0.75 ng/mL Low 0.81-3.85 [facility] ([place]) Comment on above: Performed By: #### C MP, VIDH, GFR, GADCAB, A1C, LIPID, TSH #### [place] [address] #### CPEP #### [place] [address] LABORATORYOrdered By: SYSTEM SYSTEM on 04-14-2023 25-hydroxyvitamin D3 [Mass/Vol] 18.9 ng/mL Invalid Interpretation Code AO ADM SS Comment on above: Interpretive Data: I nterpretive Values Based on Total 25(OH) Vitamin D: Deficient <20 ng/mL Insufficient 20 - <30 ng/mL Sufficient 30-100 ng/mL Albumin BCP dye [Mass/Vol] 2.4 G/dL Invalid Interpretation Code 3.5 - 5.0 G/dL AO ADM SS Albumin/Globulin [Mass ratio] 0.5 {ratio} Invalid Interpretation Code 1.1 - 2.5 ratio AO ADM SS ALP [Catalytic activity/Vol] 111 U/L Invalid Interpretation Code 40 - 135 U/L AO ADM SS ALT With P-5'-P [Catalytic activity/Vol] 39 U/L Invalid Interpretation Code 16 - 63 U/L AO ADM SS AST With P-5'-P [Catalytic activity/Vol] 13 U/L Invalid Interpretation Code 10 - 40 U/L AO ADM SS Bilirubin [Mass/Vol] 0.7 mg/dL Invalid Interpretation Code 0.2 - 1.0 mg/dL AO ADM SS Comment on above: Interpretive Data: U se of this assay is not recommended for patients undergoing treatment with eltrombopag due to the potential for falsely elevated results. C peptide [Mass/Vol] 0.75 ng/mL Invalid Interpretation Code 0.81 - 3.85 ng/mL AH ADM SS Calcium [Mass/Vol] 9.1 mg/dL Invalid Interpretation Code 8.4 - 10.2 mg/dL AO ADM SS Chloride [Moles/Vol] 99 mmol/L Invalid Interpretation Code 98 - 107 mmol/L AO ADM SS CO2 [Moles/Vol] 29 mmol/L Invalid Interpretation Code 22 - 29 mmol/L AO ADM SS Creatinine [Mass/Vol] 0.94 mg/dL Invalid Interpretation Code 0.70 - 1.30 mg/dL AO ADM SS Electrolyte Balance 8.0 mEq/L Invalid Interpretation Code 4.0 - 15.0 mEq/L AO ADM SS GFR/1.73 sq M.predicted among blacks MDRD (S/P/Bld) [Vol rate/Area] 113 ml/min/1.73sqm Invalid Interpretation Code AO Chemistry S Comment on above: Interpretive Data: GFR Population mean for , Non- Americans Ages 20-29 = 116 mL/min/1.73 sq.m. Ages 30-39 = 107 mL/min/1.73 sq.m. Ages 40-49 = 99 mL/min/1.73 sq.m. Ages 50-59 = 93 mL/min/1.73 sq.m. Ages 60-69 = 85 mL/min/1.73 sq.m. Ages 70+ = 75 mL/min/1.73 sq.m. Chronic Kidney Disease: Less than 60 mL/min/1.73 square meters End Stage Renal Disease: Less than 15 mL/min/1.73 square meters GFR/1.73 sq M.predicted among non-blacks MDRD (S/P/Bld) [Vol rate/Area] 94 ml/min/1.73sqm Invalid Interpretation Code AO Chemistry S Comment on above: Interpretive Data: GFR Population mean for , Non- Americans Ages 20-29 = 116 mL/min/1.73 sq.m. Ages 30-39 = 107 mL/min/1.73 sq.m. Ages 40-49 = 99 mL/min/1.73 sq.m. Ages 50-59 = 93 mL/min/1.73 sq.m. Ages 60-69 = 85 mL/min/1.73 sq.m. Ages 70+ = 75 mL/min/1.73 sq.m. Chronic Kidney Disease: Less than 60 mL/min/1.73 square meters End Stage Renal Disease: Less than 15 mL/min/1.73 square meters Globulin 4.8 G/dL Invalid Interpretation Code AO ADM SS Glucose [Mass/Vol] 317 mg/dL Invalid Interpretation Code 70 - 105 mg/dL AO ADM SS HbA1c (Bld) [Mass fraction] 10.3 % Invalid Interpretation Code 4.3 - 6.4 % AO ADM SS Potassium [Moles/Vol] 4.5 mmol/L Invalid Interpretation Code 3.5 - 5.1 mmol/L AO ADM SS Protein [Mass/Vol] 7.2 G/dL Invalid Interpretation Code 6.4 - 8.2 G/dL AO ADM SS Sodium [Moles/Vol] 136 mmol/L Invalid Interpretation Code 136 - 145 mmol/L AO ADM SS TSH Qn 2.32 m[IU]/L Invalid Interpretation Code 0.36 - 3.74 mcIU/mL AO ADM SS Urea nitrogen [Mass/Vol] 24 mg/dL Invalid Interpretation Code 7 - 18 mg/dL AO ADM SS Urea nitrogen/Creatinine [Mass ratio] 26 ratio Invalid Interpretation Code 7 - 27 ratio AO ADM SS LABORATORYOrdered By: Kaur Gaitan on 04-14-2023 Cholesterol [Mass/Vol] 144 mg/dL Invalid Interpretation Code 0 - 200 mg/dL AO ADM SS Comment on above: Interpretive Data: C holesterol Reference Interval: Less than 200 Desirable 200-239 Borderline high risk 240 and above High risk Cholesterol in HDL [Mass/Vol] 39 mg/dL Invalid Interpretation Code 40 - 60 mg/dL AO ADM SS Cholesterol in LDL [Mass/Vol] 83 mg/dL Invalid Interpretation Code 0 - 130 mg/dL AO ADM SS Triglyceride [Mass/Vol] 110 mg/dL Invalid Interpretation Code 0 - 150 mg/dL AO ADM SS Comment on above: Interpretive Data: T riglyceride Reference Interval: Less than 150 Normal 150-199 Borderline high risk 200-499 High risk 500 or higher Very high risk LIPIDon 04-14-2023 Cholesterol [Mass/Vol] 144 mg/dL Normal 0-200 [facility] ([place]) Comment on above: Result Comment: Chol esterol Reference Interval: Less than 200 Desirable 200-239 Borderline high risk 240 and above High risk Performed By: #### C MP, VIDH, GFR, GADCAB, A1C, LIPID, TSH #### [place] [address] #### CPEP #### [address] [address] Cholesterol in HDL [Mass/Vol] 39 mg/dL Low 40-60 [facility] ([place]) Comment on above: Performed By: #### C MP, VIDH, GFR, GADCAB, A1C, LIPID, TSH #### [place] [address] #### CPEP #### [address] [address] Cholesterol in LDL [Mass/Vol] 83 mg/dL Normal 0-130 [facility] ([place]) Comment on above: Performed By: #### C MP, VIDH, GFR, GADCAB, A1C, LIPID, TSH #### [place] [address] #### CPEP #### [address] [address] Triglyceride [Mass/Vol] 110 mg/dL Normal 0-150 [facility] ([place]) Comment on above: Result Comment: Trig lyceride Reference Interval: Less than 150 Normal 150-199 Borderline high risk 200-499 High risk 500 or higher Very high risk Performed By: #### C MP, VIDH, GFR, GADCAB, A1C, LIPID, TSH #### [place] [address] #### CPEP #### [address] [address] TSHon 04-14-2023 TSH Qn 2.32 m[IU]/L Normal 0.36-3.74 [facility] ([place]) Comment on above: Performed By: #### C MP, VIDH, GFR, GADCAB, A1C, LIPID, TSH #### [address] [address] #### CPEP #### [address] [address] VIDHon 04-14-2023 Vit. D 25-Hydroxy 18.9 ng/mL Normal [facility] ([place]) Comment on above: Result Comment: Inte rpretive Values Based on Total 25(OH) Vitamin D: Deficient <20 ng/mL Insufficient 20 - <30 ng/mL Sufficient 30-100 ng/mL Performed By: #### C MP, VIDH, GFR, GADCAB, A1C, LIPID, TSH #### [address] [address] #### CPEP #### [address] [address] LABORATORYOrdered By: Kaur Gaitan on 03-27-2022 Albumin BCP dye [Mass/Vol] 4.1 G/dL Invalid Interpretation Code 3.5 - 5.0 G/dL AO ADM SS Albumin/Globulin [Mass ratio] 1.5 {ratio} Invalid Interpretation Code 1.1 - 2.5 ratio AO ADM SS ALP [Catalytic activity/Vol] 100 U/L Invalid Interpretation Code 40 - 135 U/L AO ADM SS ALT With P-5'-P [Catalytic activity/Vol] 17 U/L Invalid Interpretation Code 16 - 63 U/L AO ADM SS AST With P-5'-P [Catalytic activity/Vol] 12 U/L Invalid Interpretation Code 10 - 40 U/L AO ADM SS Bilirubin [Mass/Vol] 0.4 mg/dL Invalid Interpretation Code 0.2 - 1.0 mg/dL AO ADM SS Calcium [Mass/Vol] 9.1 mg/dL Invalid Interpretation Code 8.4 - 10.2 mg/dL AO ADM SS Chloride [Moles/Vol] 102 mmol/L Invalid Interpretation Code 98 - 107 mmol/L AO ADM SS CO2 [Moles/Vol] 29 mmol/L Invalid Interpretation Code 22 - 29 mmol/L AO ADM SS Creatinine [Mass/Vol] 0.89 mg/dL Invalid Interpretation Code 0.70 - 1.30 mg/dL AO ADM SS Electrolyte Balance 9.0 mEq/L Invalid Interpretation Code 4.0 - 15.0 mEq/L AO ADM SS Free T4 [Mass/Vol] 1.18 ng/dL Invalid Interpretation Code 0.76 - 1.46 ng/dL AO ADM SS Globulin 2.7 G/dL Invalid Interpretation Code AO ADM SS Glucose [Mass/Vol] 173 mg/dL Invalid Interpretation Code 70 - 105 mg/dL AO ADM SS Potassium [Moles/Vol] 3.8 mmol/L Invalid Interpretation Code 3.5 - 5.1 mmol/L AO ADM SS Protein [Mass/Vol] 6.8 G/dL Invalid Interpretation Code 6.4 - 8.2 G/dL AO ADM SS Sodium [Moles/Vol] 140 mmol/L Invalid Interpretation Code 136 - 145 mmol/L AO ADM SS TSH Qn 3.21 m[IU]/L Invalid Interpretation Code 0.36 - 3.74 mcIU/mL AO ADM SS Urea nitrogen [Mass/Vol] 25 mg/dL Invalid Interpretation Code 7 - 18 mg/dL AO ADM SS Urea nitrogen/Creatinine [Mass ratio] 28 ratio Invalid Interpretation Code 7 - 27 ratio AO ADM SS LABORATORYOrdered By: SYSTEM SYSTEM on 03-27-2022 C peptide [Mass/Vol] 0.87 ng/mL Invalid Interpretation Code 0.81 - 3.85 ng/mL AH ADM SS GFR 122 ml/min/1.73sqm Invalid Interpretation Code AO Chemistry S GFR Non- 100 ml/min/1.73sqm Invalid Interpretation Code AO Chemistry S Chlamydia and GC PCR Panelon 02-26-2018 Chlamydia and GC PCR Panel Chlamydia trachomatis PCR --> Status: FNOT DetectedChlamydia trachomatis Nucleic Acid NOT Detected byDNA Amplification using the Digg System.Culture is the only recommended test in medical-legal casessuch as suspected child abuse or molestation.Chlamydia trachomatis Nucleic Acid NOT Detected byDNA Amplification using the [employer] System.Culture is the only recommended test in medical-legal casessuch as suspected child abuse or molestation.Neisseria gonorrhoeae PCR --> Status: FNOT DetectedNeisseria gonorrhoeae Nucleic Acid NOT Detected byDNA Amplification using the Cepheid System.Culture is the only recommended test in medical-legal casessuch as suspected child abuse or molestation.Neisseria gonorrhoeae Nucleic Acid NOT Detected byDNA Amplification using the [employer] System.Culture is the only recommended test in medical-legal casessuch as suspected child abuse or molestation. Normal [facility] Comment on above: Order Comment: Speci men Source Comment:Urine voided Performed By: #### C [facility] ####[facility] [place] [address] ED Provider Noteon 8 Protein mass conc ------ --Attestation signed by Glenn Trujillo MD at 02/25/2018 5:14 PMI was available for consultation. [facility] EMERGENCY DEPTeMERGENCY dEPARTMENT eNCOUnterPt Name: Gautam LunaMRN: [id number] of evaluation: 02/25/2018Provider: MARKUS KEITH have evaluated this patient on my own as per my scope of practice with available for consultation in the emergency department.CHIEF COMPLAINTChief ComplaintPatient presents with? Exposure to STDHISTORY OF PRESENT ILLNESS(Location/Symptom, Timing/Onset, Context/Setting, Quality, Duration, ModifyingFactors, Severity) Note limiting factors.HPITrevodeja Luna is a 27 y.o. male who presents to the emergency departmentwith the complaints of burning upon urination and lower abdominal pain. Hestates that he has a new sexual partner and is Concerned that he may have beenexposed to sexually transmitted infection. He denies any penile discharge,fever, chills, nausea, vomiting.Nursing Notes were reviewed.REVIEW OF SYSTEMS(2+ for level 4; 10+ for level 5)Review of [id number] point review of systems performed, pertinent positives as per history ofpresent illness, otherwise noted to be negative.PAST MEDICAL HISTORYNo past medical history on file.SURGICAL HISTORYNo past surgical history on file.CURRENT MEDICATIONSPrevious Medications No medications on fileALLERGIESPatient has no known allergies.FAMILY HISTORYNo family history on file.SOCIAL HISTORYSocial HistorySocial History? Marital status: Single Spouse name: N/A? Number of children: N/A? Years of education: N/ASocial History Main Topics? Smoking status: Current Every Day Smoker? Smokeless tobacco: Never Used? Alcohol use Not on file? Drug use: Unknown? Sexual activity: Not on fileOther Topics Concern? Not on fileSocial History Narrative? No narrative on fileSCREENINGSPHYSICAL EXAM(up to 7 for level 4, 8 or more for level 5)ED Triage VitalsBP Temp Temp src Pulse Resp SpO2 Height Weight-- -- -- -- -- -- -- --Physical ExamConstitutional: He is oriented to person, place, and time. He appearswell-developed and well-nourished.HENT:Head: Normocephalic and atraumatic.Eyes: Pupils are equal, round, and reactive to light. Conjunctivae and EOM arenormal.Neck: Normal range of motion. Neck supple.Cardiovascular: Normal rate and regular rhythm.Pulmonary/Chest: Effort normal and breath sounds normal. No respiratorydistress.Abdomi nal: Soft.Musculoskeletal: Normal range of motion.Neurological: He is alert and oriented to person, place, and time.Skin: Skin is warm and dry.DIAGNOSTIC RESULTSEKG (Per Emergency Physician):RADIOLOGY (Per Emergency Physician):Interpretation per the Radiologist below, if available at the time of this note:No results found.ED BEDSIDE ULTRASOUND:Performed by ED Physician - noneLABS:Labs ReviewedC. TRACHOMATIS / N. GONORRHOEAE, DNAURINALYSIS Narrative: Test Performed by [facility], [address] [place] [id number] other labs were within normal range or not returned as of this dictation.EMERGENCY DEPARTMENT COURSE and DIFFERENTIAL DIAGNOSIS/MDM:Vitals:Vital s: 02/25/18 1618BP: 120/78Pulse: 77Resp: 15Temp: 98.2 ?F (36.8 ?C)TempSrc: OralSpO2: 99%Weight: 83.9 kg (185 lb)Height: 5' 9 (1.753 m)Medicationssterile water injection (not administered)cefTRIAXone (ROCEPHIN) 250 mg in lidocaine 1 % 1 mL IM Injection (250 mgIntramuscular Given 02/25/18 1631)azithromycin (ZITHROMAX) tablet 1,000 mg (1,000 mg Oral Given 02/25/18 163)metroNIDAZOLE (FLAGYL) tablet 2,000 mg (2,000 mg Oral Given 02/25/18 163)[facility].Mr. Luna presents to the emergency department with the above complaints. Had alengthy discussion with the patient about Exposure to sexually transmitteddiseases and practicing safe sex. The patient states that he would like to betested for sexually transmitted diseases yet he would also like treatment also.A urinalysis along with urine for gonorrhea and chlamydia was sent to the lab.A urinalysis was unremarkable for urinary tract infection. At the time ofdischarge gonorrhea and chlamydia was not process Patti Vieira we will not beprocess. Tilt the next day. This was explained to the patient that he willreceive a phone call if the results positive. While he was here in theemergency department he was medicated with ceftriaxone 250 mg intramuscular,azithromycin and thousand milligrams orally and Flagyl 2000 mg orally. Signs asit is return to the emergency department were discussed with the patient and hestates understanding.CRITICAL CARE TIMETotal Critical Care time was 0 minutes, excluding separately reportableprocedures.There was a high probability of clinically significant/life threateningdeterioration in the patient's condition which required my urgent intervention.CONSULTS:None PROCEDURES:Unless otherwise noted below, noneProceduresFINAL IMPRESSION1. Sexually transmitted disease exposureDISPOSITION/PLANDI SPOSITIONPATIENT REFERRED TO:CORRIE LEBLANC Internal [address] [place] [address] [phone] an appointment as soon as possible for a visitAs neededDISCHARGE MEDICATIONS:New Prescriptions No medications on file(Please note: Portions of this note were completed with a voice recognitionprogram. Efforts were made to edit the dictations but occasionally words andphrases are mis-transcribed.)Form [email or web address].Jethro-Nata BATRES APRN - PERSON INVESTIGATOR (electronically signed)Emergency Medicine ProviderGabriela Batres APRN - CHERIE02/25/18 1704 Normal [facility] Urinalysis,[place] 8 Appearance clear Normal Clear [facility] Comment on above: Performed By: #### U AMAC ####[place] [address] [facility], [place] Bilirubin,Ur Negative Normal Negative [facility] Comment on above: Performed By: #### U AMAC ####[facility] [id number] [facility] [place] [place] Color yellow Normal Lt. Yellow [facility] Comment on above: Performed By: #### U AMAC ####[place] [address] [place], [place] Glucose Ql (U) NORM Normal Negative [facility] Comment on above: Performed By: #### U AMAC ####[place] [address] [place], [place] Ketone,Urine Negative Normal Negative [facility] Comment on above: Performed By: #### U AMAC ####[facility] [id number], [place] Leukocytes Negative Normal Negative [facility] Comment on above: Performed By: #### U AMAC ####[facility] [id number] [place], [place] Nitrites Negative Normal Negative [facility] Comment on above: Performed By: #### U AMAC ####[facility] [id number] [place] Occult Blood,Ur Negative Normal Negative [facility] Comment on above: Performed By: #### U AMAC ####[facility] [id number] [place], [place] pH Test strip (U) 8.0 Normal 5.0-8.0 [facility] Comment on above: Performed By: #### U AMAC ####[place] [id number] [place], [place] Specific [place],Urine 1.010 Normal 1.005-1.030 [facility] Comment on above: Performed By: #### U AMAC ####[facility] [id number] [place] [address] Total Protein,Urine Negative Normal Negative [facility] Comment on above: Performed By: #### U AMAC ####[facility] [id number] [place] [address] Urobilinogen NORM Normal 0-1 [facility] Comment on above: Performed By: #### U AMAC ####[facility] [id number] [place] [address] Vital Signs Date Time Vital Sign Value Performing Clinician Facility 03-26-2025 13:19-0400 Body height 175.26 cm HERBERTH MAST HAND RIGGER Work Phone: [facility] 03-26-2025 13:19-0400 Body mass index (BMI) [Ratio] 24.2 kg/m2 HERBERTH MAST HAND RIGGER Work Phone: [facility] 03-26-2025 13:19-0400 Body weight 74.38 kg HERBERTH MAST HAND RIGGER Work Phone: [facility] 03-26-2025 13:19-0400 Diastolic blood pressure 78 mm[Hg] HERBERTH MAST HAND RIGGER Work Phone: [facility] 03-26-2025 13:19-0400 Heart rate 80 /min HERBERTH MAST HAND RIGGER Work Phone: [facility] 03-26-2025 13:19-0400 SaO2% (BldA) [Mass fraction] 96 % HERBERTH MAST HAND RIGGER Work Phone: [facility] 03-26-2025 13:19-0400 Systolic blood pressure 130 mm[Hg] HERBERTH MAST HAND RIGGER Work Phone: [facility] 10-19-2024 13:46-0400 Body height 175.26 cm HERBERTH MAST HAND RIGGER Work Phone: [facility] 10-19-2024 13:46-0400 Body mass index (BMI) [Ratio] 24.4 kg/m2 HERBERTH MAST HAND RIGGER Work Phone: [facility] 10-19-2024 13:46-0400 Body weight 75.06 kg HERBERTH MAST HAND RIGGER Work Phone: [facility] 10-19-2024 13:46-0400 Diastolic blood pressure 76 mm[Hg] HERBERTH MAST HAND RIGGER Work Phone: [facility] 10-19-2024 13:46-0400 Heart rate 87 /min HERBERTH MAST HAND RIGGER Work Phone: [facility] 10-19-2024 13:46-0400 SaO2% (BldA) [Mass fraction] 96 % HERBERTH MAST HAND RIGGER Work Phone: [facility] 10-19-2024 13:46-0400 Systolic blood pressure 129 mm[Hg] HERBERTH MAST HAND RIGGER Work Phone: [facility] 07-20-2024 13:25-0500 Body mass index (BMI) [Ratio] 25 kg/m2 HERBERTH MAST HAND RIGGER Work Phone: [facility] 07-20-2024 13:25-0500 Body weight 76.77 kg HERBERTH MAST HAND RIGGER Work Phone: [facility] 07-20-2024 13:25-0500 Diastolic blood pressure 80 mm[Hg] HERBERTH MAST HAND RIGGER Work Phone: [facility] 07-20-2024 13:25-0500 Heart rate 76 /min HERBERTH MAST HAND RIGGER Work Phone: [facility] 07-20-2024 13:25-0500 SaO2% (BldA) [Mass fraction] 94 % HERBERTH MAST HAND RIGGER Work Phone: [facility] 07-20-2024 13:25-0500 Systolic blood pressure 115 mm[Hg] HERBERTH MAST HAND RIGGER Work Phone: [facility] 06-07-2022 00:34-0500 Body temperature 98.24 [degF] DR CATHY QUISPE DO [facility] 06-07-2022 00:34-0500 Diastolic Blood Pressure Non-Invasive [address] CATHY QUISPE DO [facility] 06-07-2022 00:34-0500 Heart rate 88 /min DR CATHY QUISPE DO [facility] 06-07-2022 00:34-0500 Respiratory rate 18 /min DR CATHY QUISPE DO [facility] 06-07-2022 00:34-0500 Systolic Blood Pressure Non-Invasive [address] CATHY QUISPE DO [facility] Encounters Encounter Date Encounter Type Care Provider Facility Start: 03-26-2025 End: 03-26-2025 Patient encounter procedure Miguelina Mejia LETTER CARRIER-C -[facility] Work Phone: Start: 03-26-2025 End: 03-26-2025 ambulatory HERBERTH MAST Facility:[facility] Start: 10-23-2024 End: 10-23-2024 ambulatory Miguelina Mejia Facility:[facility] Start: 10-19-2024 End: 10-19-2024 Patient encounter procedure Miguelina Mejia LETTER CARRIER-C -[facility] Work Phone: Start: 10-19-2024 End: 10-19-2024 ambulatory HERBERTH MAST HAND RIGGER Work Phone: [facility] Work Phone: Start: 07-20-2024 End: 07-20-2024 Patient encounter procedure Miguelina Mejia LETTER CARRIER-C -[facility] Work Phone: Start: 07-20-2024 End: 07-20-2024 ambulatory HERBERTH MAST Facility:[facility] Start: 06-24-2024 End: 06-28-2024 ambulatory DHEERAJ NERI DEFENSE TRAVEL ADMINISTRATOR-PERSON INVESTIGATOR Facility:[facility] Start: 06-24-2024 End: 06-28-2024 Encounter for general adult medical examination without abnormal findings DHEERAJ NERI DEFENSE TRAVEL ADMINISTRATOR-PERSON INVESTIGATOR Facility:[facility] Start: 06-24-2024 End: 06-28-2024 Outreach Lab SAYEDA HALLE DEFENSE TRAVEL ADMINISTRATOR-PERSON INVESTIGATOR [facility] Start: 06-23-2024 End: 06-27-2024 ambulatory HERBERTH MAST DEFENSE TRAVEL ADMINISTRATOR-PERSON INVESTIGATOR Facility:[facility] Carlos AUGUSTINE Start: 06-23-2024 End: 06-27-2024 Outreach Lab BIJUEDA HALLE DEFENSE TRAVEL ADMINISTRATOR-PERSON INVESTIGATOR [facility] Start: 11-04-2023 End: 11-05-2023 ambulatory MEGHA LAYTON MD Facility:[facility] Start: 11-04-2023 End: 11-04-2023 Patient encounter procedure MEGHA LAYTON MD [facility] Start: 06-18-2023 End: 06-19-2023 ambulatory SONNY SEFFENS DEFENSE TRAVEL ADMINISTRATOR-PERSON INVESTIGATOR Facility:[facility] Start: 04-14-2023 End: 04-15-2023 ambulatory SONNY SEFFENS DEFENSE TRAVEL ADMINISTRATOR-PERSON INVESTIGATOR Facility:[facility] Start: 04-14-2023 End: 04-14-2023 Patient encounter procedure MEGHA LAYTON MD [facility] Start: 08-04-2022 End: 08-04-[address] LUZ MENDOZA MD [facility] Start: 06-07-2022 End: 06-07-2022 Emergency department patient visit DR CATHY QUISPE DO [facility] Start: 03-27-2022 End: 03-27-2022 Patient encounter procedure MEGHA LAYTON MD [facility] Start: 02-25-2018 Emergency department patient visit Gabriela Batres [facility] Procedures Date Procedure Procedure Detail Performing Clinician Start: 06-07-2011 Miscellaneous (quali fier value) MEGHA LAYTON MD Comment on above: had 2 skin grafts in 2011, 1 on each arm Plan of Treatment Date Care Activity Detail Author Comprehensive metabo lic 1999 panel - Serum or Plasma [facility] Lipid 1996 panel - Serum or Plasma [facility] Thyroid stimulating hormone measurement [facility] Urine microalbumin/c reatinine ratio measurement [facility] Vitamin D, 25-hydroxy measurement [facility] Immunizations Immunization Date Immunization Notes Care Provider Fa [facility] 11-15-2003 hepatitis B pediatri c vaccine MEGHA LAYTON MD [facility] 11-15-2003 measles/mumps/rubell a virus vaccine MEGHA LAYTON MD [facility] 02-25-1993 haemophilus influenz ae type b vaccine, HbOC conjugate MEGHA LAYTON MD [facility] 02-25-1993 measles/mumps/rubell a virus vaccine MEGHA LAYTON MD [facility] Payers Date Payer Category Payer Self-pay 2023 Unknown [id number] 2021 Unknown [id number] 1990 Unknown [id number] 2.16.8 [id number] 1991 Unknown [id number] 2.16.8 [id number] 1991 Unknown [id number] 2.16.8 [id number] 1991 Unknown [id number] 2.16.8 [id number] 1991 Unknown [id number] 2.16.8 [id number] Unknown [id number] 2.16.8 [id number] Unknown [id number] 2.16.8 [id number] Unknown [id number] 2.16.8 [id number] Unknown [id number] 2.16.8 [id number] Social History Date Type Detail Facility Start: 01-08-2021 End: 04-21-2024 Tobacco smoking status Ex-smoker (finding) [facility] Start: 1990 Sex Assigned At Male [facility] Start: 08-14-2019 Sex Male (finding) [facility] Start: 07-20-2024 End: 07-20-2024 Tobacco smoking status NYIS Smokes tobacco daily (finding) [facility] Sex Male [facility] Medical Equipment Procedure Code Equipment Code Equipment Origin al Text Equipment Identifier Dates See Instructions , 1=100 strips. Test twice per day and as needed., # 1 EA, 5 Refill(s), Pharmacy: [address], Diabetes, 173.5, cm, 02/19/21 16:08:00 EDT, Height, 88.6, kg, 02/19/21 16:08:00 EDT, Dosing Weight Start: 02-19-2021 See Instructions , 1= 100 lancets Test once per day and as needed, # 1 EA, 0 Refill(s), Pharmacy: [address], Diabetes, 173, cm, 01/08/21 15:11:00 EDT, Height, 91.7, kg, 01/08/21 15:11:00 EDT, Dosing Weight Start: 01-08-2021 See Instructions , 1=100 strips. Test twice per day and as needed., # 1 EA, 5 Refill(s), Pharmacy: [facility] [address] Diabetes, 173.5, cm, 02/19/21 16:08:00 EDT, Height, 88.6, kg, 02/19/21 16:08:00 EDT, Dosing Weight Start: 02-19-2021 See Instructions , 1= 100 lancets Test once per day and as needed, # 1 EA, 0 Refill(s), Pharmacy: [facility] [address] Diabetes, 173, cm, 01/08/21 15:11:00 EDT, Height, 91.7, kg, 01/08/21 15:11:00 EDT, Dosing Weight Start: 01-08-2021 See Instructions , 1=100 strips. Test twice per day and as needed., # 1 EA, 5 Refill(s), Pharmacy: [facility] [address] Diabetes, 173.5, cm, 02/19/21 16:08:00 EDT, Height, 88.6, kg, 02/19/21 16:08:00 EDT, Dosing Weight Start: 02-19-2021 See Instructions , 1= 100 lancets Test once per day and as needed, # 1 EA, 0 Refill(s), Pharmacy: [facility] [address] Diabetes, 173, cm, 01/08/21 15:11:00 EDT, Height, 91.7, kg, 01/08/21 15:11:00 EDT, Dosing Weight Start: 01-08-2021 See Instructions , 1=100 strips. Test twice per day and as needed., # 1 EA, 5 Refill(s), Pharmacy: [facility] [address] Diabetes, 173.5, cm, 02/19/21 16:08:00 EDT, Height, 88.6, kg, 02/19/21 16:08:00 EDT, Dosing Weight Start: 02-19-2021 See Instructions , 1= 100 lancets Test once per day and as needed, # 1 EA, 0 Refill(s), Pharmacy: [facility] [address] Diabetes, 173, cm, 01/08/21 15:11:00 EDT, Height, 91.7, kg, 01/08/21 15:11:00 EDT, Dosing Weight Start: 01-08-2021 See Instructions , 1=100 strips. Test twice per day and as needed., # 1 EA, 5 Refill(s), Pharmacy: [facility] [address] [address] Diabetes, 173.5, cm, 02/19/21 16:08:00 EDT, Height, 88.6, kg, 02/19/21 16:08:00 EDT, Dosing Weight Start: 02-19-2021 See Instructions , pen needles 31g x5mm 1 pen needle5 times daily #150 for 30 days and 3 refills E11.65., # 1 EA, 0 Refill(s), Pharmacy: [facility] #[id number], 173.3, cm, 04/15/23 15:41:00 EST, Height, 68.2, kg, 04/15/23 15:41:00 EST, Dosing Weight Start: 04-15-2023 See Instructions , 1= 100 lancets Test once per day and as needed, # 1 EA, 0 Refill(s), Pharmacy: [facility], Diabetes, 173, cm, 01/08/21 15:11:00 EDT, Height, 91.7, kg, 01/08/21 15:11:00 EDT, Dosing Weight Start: 01-08-2021 Functional Status Date Assessment Result Facility 06-07-2022 Functional Status ID band on, Allergy Band on, Call device within reach, Bed in low position, Wheels locked, Upper/Half-Length side-rails up, Phone within reach, Safety level maintained [facility] Mental Status Date Assessment Result Facility 06-07-2022 Mental Status Orientation Oriented x 4 [facility] Clinical Notes 06-07-2022 to 03-26-2025 Note Date & Type Note Facility 03-26-2025 Progress note [facility] 03-26-2025 Progress note Note Date/Time March 26, 2025 2:59pm [facility] [address] [place] [address]. [address] [place] [address] OFFICE VISIT Date of Service: 03/26/25 MR#: [id number] Acct: [id number] Name: GAUTAM LUNA Rep #: [id number] : 1990 Provider: ROMINA Mejia Age/Sex: 34/M Location: [facility] Status: Signed Intake Vital Signs 10/19/24 13:46 03/26/25 13:19 Height 5 ft 9 in 5 ft 9 in Weight: 165 lb 8 oz 164 lb BMI 24.4 24.2 BP 129/76 H 130/78 H Blood Pressure Location Rt brachial Rt brachial Position Sitting Sitting Pulse 87 80 Pulse Source Monitor Monitor Pulse Oximetry (%) 96 96 Oxygen Delivery Method room air room air Intake Visit Reasons: 5 M FU, RS 01/18 Chief Complaint: f/u diabetes Allergies Penicillins Allergy (Intermediate, Verified 03/26/25 13:23) Rash Sulfa (Sulfonamide Antibiotics) Allergy (Intermediate, Verified 03/26/25 13:23) Rash Medications ?Medication ?Instructions ?Recorded ?Confirmed ?Type insulin degludec 100 unit/mL (3 15 unit subcut QHS 03/26/25 History mL) subcutaneous pen (Tresiba FlexTouch U-100 insulin) insulin pump cartridge,auto #1 ea 07/20/24 03/26/25 Rx dose,BT,G6/L2 with controller subcutaneous (Omnipod 5 Intro Kit(G6/Aqkvk6Iajb) subcutaneous cartridge) insulin pump cartridge,auto #1 ea 08/28/24 03/26/25 Rx dose,BT,G6/G7 with controller subcutaneous (Omnipod 5 G6-G7 Intro Kit(Gen 5) subcutaneous cartridge and controller) insulin lispro 100 unit/mL 60 unit (0.6 mL) subcut QDA Y #50 mL 11/03/24 03/26/25 Rx subcutaneous solution (Humalog U-100 Insulin) cholecalciferol (vitamin D3) 1,250 1,250 mcg PO QWEEK #12 caps 01/08/25 03/26/25 Rx mcg (50,000 unit) capsule insulin pump cart,auto,BT,G6/7 #10 ea 02/28/25 5 Rx (Omnipod 5 G6-G7 Pods (Gen 5) subcutaneous cartridge) blood-glucose sensor (Dexcom G6 #9 ea 03/26/25 5 Rx Sensor device) blood-glucose transmitter (Dexcom #1 ea 03/26/2503/26 Rx G6 Transmitter device) PFSH Family History Other Alcoholism Asthma Diabetes Heart disease Raynauds disease Social History Smoking Status: Current every day smoker Electronic Cigarette Use: with nicotine alcohol intake: current substance use type: does not use what type of physical activity do you participate in: walking frequency: daily HPI HPI Chief Complaint: f/u diabetes Details: GAUTAM LUNA, is a 34 M who presents to the office today for evaluation and management of diabetes. A1C today is 7.1%, improved from 10/19/24 at 7.7%. Weight is stable. Currently using Omnipod 5 with Dexcom G7. He is frustrated with connectivity of pump and CGM. Glooko report downloaded and reviewed- he is having post meal elevations. He is having prolonged elevations that is causing him to get kicked out of automated mode. He denies any significant episode of hypoglycemia that has required assistance from others. BP stable. Hx of vitamin D deficiency. He completed vitamin d3 50,000 iu qweek and is now taking vitamin D3 2,000 iu once daily. Labs are up to date. Denies any acute concerns. ROS Const Constitutional: No fatigue or weight change ENT ENT: No dizziness/vertigo Cardio Cardiology: No chest pain at rest, chest pain with exertion, shortness of breathor palpitations Skin Skin: No wounds Endo Endocrine: No fatigue or weight change Exam Const General: cooperative, healthy appearing, comfortable and no acute distress Nutritional Appearance: average body habitus Orientation: alert, awake and oriented x3 HENMT Head: normal to inspection Ears: hearing grossly normal bilaterally Nose: external nose normal Face and sinus: normal facial exam Eyes General: appearance normal, both eyes and all related structures Alignment and Position: alignment normal Sclera: sclerae normal Neck Neck: normal visual inspection Chest Chest palpation & inspection: normal inspection of the chest Resp Effort & Inspection: normal respiratory effort, able to speak in complete sentences, symmetric chest movement, normal respiratory pattern, no audible wheezes and no cough Auscultation: Bilateral: Clear to Auscultation Cardio Rate: regular rate Rhythm: regular rhythm Heart Sounds: S1 normal and S2 normal GI Inspection: normal to inspection Musc Cervical Spine: normal cervical lordosis Thoracic/Lumbar Spine: thoracic and lumbar spine normal to inspection Skin General: no rashes or lesions noted Lesions: no lesions Rashes: no rashes Trauma: no lacerations or abrasions Wounds: no wounds Neuro General: patient alert, patient awake and patient oriented x3 Cognition: normal cognition Speech: speech normal Gait: normal gait Extrem General: normal to inspection and no pedal edema Psych Appearance: grossly normal Mental Status: mental status grossly normal Mood: congruent mood Affect: normal affect Speech and Movement: speech and movement normal Attitude: cooperative Thought Process: normal Thought Content: normal Judgment: judgment good Results POC A1C POC A1C 7.1 % Last Edit by Gautam Barrera RN on 03/26/25 13:26 Assessment and Plan Assessment and Plan (1) Type 1 diabetes mellitus with hyperglycemia: Status: Chronic Plan: Chronic- controlled. Longitudinal care provided. G2211. I reviewed with the patient the risk of developing and worsening of diabetes complications including retinopathy, neuropathy, nephropathy, heart attack, stroke, amputation, and sudden . Diabetes education provided. A1C at goal: <7.5%. CGM tracings reviewed in detail with patient. Emphasized importance of accurately counting and bolusing for carbohydrates. Discussed that if he does not bolus for meals to be aggressive with bolusing forcorrection. Discussed that he is getting kicked out of automade mode d/t prolonged elevations. Resume automated mode after 5 minutes and address elevation. Notify office of persistently high/low blood sugars. CGM: he is checking blood sugar 4x/day, he is using blood sugar reading to titrate insulin dose, he is on a continuous infusion insulin pump, he is at risk ofhypoglycemia. Reviewed most recent labs. Follow up in 3 months. (2) Presence of insulin pump: Status: Chronic Plan: Plan same as above. (3) Insulin pump titration: Status: Chronic Plan: No changes made to insulin pump settings at today's appt. (4) Vitamin D deficiency: Status: Chronic Plan: Chronic- likely improved. Continue vitamin D3 2,000 iu once daily. Will continue to monitor in routine labs. I have spent [28] minutes today reviewing labs, records and history. Time includes coordinating care, interpretation of tests, discussion with patient's other health care providers via telephone. This also includes time I spent with the patient for exam, treatment plan and education as well as documenting clinical information. Orders: Orders POC A1C Today E10.65 - Type 1 diabetes mellitus with hyperglycemia Medications: New blood-glucose sensor (Dexcom G6 Sensor device) 1 sensor q 10 days 9 ea 1RF E10.65 - Type 1 diabetes mellitus with hyperglycemia blood-glucose transmitter (Dexcom G6 Transmitter device) 1 transmitter q 90 days 1 ea 1RF E10.65 - Type 1 diabetes mellitus with hyperglycemia Discontinued blood-glucose sensor (Dexcom G7 Sensor device) Discontinued Reason: Order Changed 1 sensor q 10 days 9 ea 1RF E10.65 - Type 1 diabetes mellitus with hyperglycemia Plan Details Follow Up: 3 Months Coding Level of Care Code Off vis,est,level 3 Extra Time Spent Extra Time Spent Extra Time Spent: G2211 Diagnoses Type 1 diabetes mellitus with hyperglycemia E10.65 Presence of insulin pump Z96.41 Insulin pump titration Z46.81 Vitamin D deficiency E55.9 Additional Codes Extra Time Spent - Extra Time Spent: G2211 (G2211) 03/26/25 1514 <Electronically signed by Miguelina VANEGAS> Date _ Miguelina VANEGAS Cosigner Signature: Date (if applicable) CC: SHIVA TORRES ~ [facility] Work Phone: 1(213) 369-104502-13-2025 Evaluation note* Diagnosis Onset Date Resolution Status Admit Date Type 1 diabetes mellitus wit h hyperglycemia chronic July 20, 025 1:20pm [facility] Work Phone: 1(450) 551-450301-01-2023 Hospital Discharge instructions Patient Education 06/07/2022 00:25:19 Causes of Syncope Causes of Syncope Syncope (fainting) has many causes. Sometimes it's not serious. In other cases, it's a sign of a heart problem. But treatment can help When syncope is not serious Most causes of syncope are not serious and may include: Strong feelings, such as anxiety or fear. A nerve signal may briefly change your heart rate and lower your blood pressure too much. Standing for too long. Standing may cause blood to pool in your legs. When this happens, your brainmay not get all the blood it needs. Standing up too fast. Your blood pressure may not adjust fast enough to changes in posture and may drop too low. Certain medicines can also cause this problem. Examples of medicines that can cause a drop in blood pressure include diuretics, blood pressure medicines, and medicines for chest pain. Reaction to normal body functions. When you go to the bathroom, have gastrointestinal discomfort, nausea, or pain, your heart may have a natural reflex to slow down and lower blood pressure. This canresult in syncope. This may also follow exercise, eating, laughter, weight lifting, or playing musical instruments like the trumpet or trombone. When heart trouble causes syncope A heart problem can lower the amount of oxygen-rich blood that gets to the brain. Heart trouble canbe serious and even life threatening if not treated: A slow heart rate. Electrical signals tell the chambers of the heart when to pump. But the signals may be slowed or blocked (heart block) as they travel on the heart s electrical pathways. This can be caused by aging, scarred heart tissue, or damage from heart disease. When the heart rate slows, not enough blood is pumped. A fast heart rate. Some things can make the heart race. For instance, a heart attack can create abnormal electrical signals. These signals can make the heart suddenly beat very fast. The heart pumps before the chambers can fill with blood. So less blood gets to the brain and other parts of the body. Illegal drugs, certain medicines, heart disease, or an inherited condition can also cause this. A heart valve problem. Blood travels through the chambers of the heart as it pumps. Heart valves open and close to help move blood in the right direction. But a hardened or scarred valve may not openor close fully. As a result, less blood is pumped through the heart to the brain and body. Most often, syncope occurs when a person's aortic valve is narrowed and he or she does strenuous activity. A heart muscle problem. Some people develop a thickened heart muscle that blocks blood flow out of the heart to the body. This is called hypertrophic cardiomyopathy. Being dehydrated and having this condition can raise the risk for syncope. Whatever the cause of syncope, it's important to see your healthcare provider. You may need to be seen by a hot iron worker, neurologist, or an ear, nose, and throat specialist. Don't drive, operate heavy machinery, or do activities in which you could fall and injure yourself if you have syncope and have not been evaluated. [id number] [employer]. [address] [place] [address]88. All rights reserved. This information is not intended as a substitute for professional medical care. Always follow yourhealthcare professional's instructions. Follow Up Care 06/07/2022 00:22:38 With:SONNY REYNOLDS Address: [address] [place] [phone] When:2-4 days [facility] 01-01-2023 Note Discharge Instructions Thank you for allowing [facility] to assist you with your healthcare needs. The following is importantdischarge information regarding your hospital visit. Diagnosis from Today's Visit Syncope/Near syncope What to Do Next Instructions from Your Care Team No qualifying data available. Post Acute Orders No qualifying data available. You Need to Schedule the Following Appointments Follow Up with SONNY REYNOLDS When Within 2-4 days Where: [address] [place] [id number] [phone] Allergies penicillin sulfa drug Medications Please ask your primary doctor or pharmacist before taking any other medication not listed, including over the counter drugs, herbal medications, vitamins and or supplements as they may interact withyour home medications. What How Much When Why Instructions Last Dose Unchanged DME (Blood Glucose Test Machine) See instructions Diabetes Dispense 1 Unchanged DME (Blood Glucose Test Strips) See instructions Diabetes 1=100 strips. Test twice per day and as needed. Unchanged DME (DME MISCellaneous) See instructions freestyle sarbjit 3 sensors 1 sensor every 14 days #2 sensors for 28 days and 2 refill. Unchanged DME (Lancets) See instructions Diabetes 1= 100 lancets Test once per day and as needed Unchanged metFORMIN (MetFORMIN (Eqv-Glucophage XR) 500 mg oral tablet, EXTENDED RELEASE) 2 tab(s) by mouth Once a day Please take this list to your next doctor s visit. Bring all medications you take, including over the counter medications, herbals and other supplements with you to your doctor s visit. Patients and families are reminded to discard old lists and to update any records with all medication providers or retail pharmacies. Education Materials Causes of Syncope Syncope (fainting) has many causes. Sometimes it's not serious. In other cases, it's a sign of a heart problem. But treatment can help When syncope is not serious Most causes of syncope are not serious and may include: Strong feelings, such as anxiety or fear. A nerve signal may briefly change your heart rate and lower your blood pressure too much. Standing for too long. Standing may cause blood to pool in your legs. When this happens, your brainmay not get all the blood it needs. Standing up too fast. Your blood pressure may not adjust fast enough to changes in posture and may drop too low. Certain medicines can also cause this problem. Examples of medicines that can cause a drop in blood pressure include diuretics, blood pressure medicines, and medicines for chest pain. Reaction to normal body functions. When you go to the bathroom, have gastrointestinal discomfort, nausea, or pain, your heart may have a natural reflex to slow down and lower blood pressure. This canresult in syncope. This may also follow exercise, eating, laughter, weight lifting, or playing musical instruments like the trumpet or trombone. When heart trouble causes syncope A heart problem can lower the amount of oxygen-rich blood that gets to the brain. Heart trouble canbe serious and even life threatening if not treated: A slow heart rate. Electrical signals tell the chambers of the heart when to pump. But the signals may be slowed or blocked (heart block) as they travel on the heart s electrical pathways. This can be caused by aging, scarred heart tissue, or damage from heart disease. When the heart rate slows, not enough blood is pumped. A fast heart rate. Some things can make the heart race. For instance, a heart attack can create abnormal electrical signals. These signals can make the heart suddenly beat very fast. The heart pumps before the chambers can fill with blood. So less blood gets to the brain and other parts of the body. Illegal drugs, certain medicines, heart disease, or an inherited condition can also cause this. A heart valve problem. Blood travels through the chambers of the heart as it pumps. Heart valves open and close to help move blood in the right direction. But a hardened or scarred valve may not openor close fully. As a result, less blood is pumped through the heart to the brain and body. Most often, syncope occurs when a person's aortic valve is narrowed and he or she does strenuous activity. A heart muscle problem. Some people develop a thickened heart muscle that blocks blood flow out of the heart to the body. This is called hypertrophic cardiomyopathy. Being dehydrated and having this condition can raise the risk for syncope. Whatever the cause of syncope, it's important to see your healthcare provider. You may need to be seen by a hot iron worker, neurologist, or an ear, nose, and throat specialist. Don't drive, operate heavy machinery, or do activities in which you could fall and injure yourself if you have syncope and have not been evaluated. [phone] [employer]. [address] [place] [address]. All rights reserved. This information is not intended as a substitute for professional medical care. Always follow yourhealthcare professional's instructions. Additional Information VACCINATE! IT SAVES LIVES! Members of the community who have not yet received the COVID-19 vaccine and would like to receive it can visit one of [facility] vaccine clinics. There are many vaccine clinic locations within the [facility]. For locations and available times, please visit [email or web address]. It is important to note that some COVID mobile vaccine clinics are held outdoors and may be canceled in rainy orstormy conditions. To learn more about pediatric vaccinations (ages 5-11), we invite you to visit the [facility] webpage. [email or web address]/[email or web address] [email or web address] learn more about the COVID-19 vaccine, we invite you to visit the [employer] website for a list of frequently asked questions. [email or web address].pdf [facility] Portal Access Instructions: Stay connected with your healthcare team and access your personal medical information anytime with the [facility] [employer] Patient Portal. If you would like a full copy of your medical records please contact the [facility] Medical Records Department Wednesday through Wednesday between 8a.m. and 4:30p.m. Please follow the directions below to access the portal: 1.Access the email account you provided upon registration to the [facility].2.Look for an invitation email from [facility].3.Open the email and access the invitation link: Accept Invitation to [facility]4.Fill in the required patel to create your account. Sign into [email or web address] with your username and password that you created in the above steps to stay up to date. You can then view a summary of results, a summary of your visits, and the ability to download your summaries to your computer or send the information securely to a physician. Remember that your healthcare information is confidential, so carefully consider who you will allow to register on the [facility] [employer] Patient Portal for access to your information. You can also access the [employer] Patient Portal on the [employer] aren. Simply click on Health Records under [employer] and then click on the Brandy logo. HOW TO SAFELY DISPOSE OF PRESCRIPTION MEDICATIONS Please use one of the following methods to safely dispose of your unused medications. 1.Use a drug disposal kit: the drug disposal pouch allows you to safely discard your old and unuseddrugs. Ask your nurse to give you one when you are discharged.2.Visit a local take-back location: Many local pharmacies and police departments have programs that collect old and unwanted prescriptiondrugs. Call your local pharmacy or go to http://bit.ly/1M4Qs6e to find one close to you.3.Make use of household items: Use cat litter or old coffee grounds to dispose medications if other options arenot available. Mix your drugs with these household products, seal them in an airtight container andthrow it into the garbage. Call [facility]: [phone] to be sure your drugs can be disposed of in this way. Some medicines may require a different approach.4.Never flush your medications down the toilet. IF YOU HAVE BEEN PRESCRIBED AN OPIOIDS FOR PAIN If you have been prescribed an opioid (such as hydrocodone, oxycodone or morphine), it is critical to understand the possible side effects and risks of opioid pain medications. Even when taken as directed, opioids can have several side effects including: Tolerance, meaning you might need to take more of a medication for the same pain relief. Nausea, vomiting and/or constipation. Sleepiness, dizziness, dry mouth, confusion, depression or itching. Physical dependence, meaning you have withdrawal symptoms when a medication is stopped ? this can develop within a few days. KNOW YOUR RESPONSIBILITIES It is important to know exactly how much and how often to take the opioid pain medications you are prescribed. Never take opioids in higher amounts or more often than prescribed. Do not combine opioids with alcohol or other drugs that cause drowsiness, such as benzodiazepines, also known as benzos,including diazepam and alprazolam, muscle relaxants or sleep aids. Never sell or share prescriptionopioids. This is illegal. Store opioids in a secure place and out of reach of others (including children, family, friends and visitors). The last page(s) of this document has been signed and retained as a CHART COPY Signatures Patient Education Materials Causes of Syncope Medication Leaflets My discharge plan and instructions have been reviewed and explained to me and IJEREMY TREVOR understand my current condition and have read and understand these discharge instructions. I have received a written copy of the plan/instructions. If I have questions, I am aware that I should contact my d octor. Patient/Rail Walker Signature: Date/Time: Relationship to Patient: Witness Name/Signature: [facility] Future Appointments Appointment Date:04/09/2022 02:45:00 PM Scheduled Provider:MEGHA LAYTON MD Location:[facility] Appointment Type:ENDO OV Appointment Date:07/30/2022 03:45:00 PM Scheduled Provider:MEGHA LAYTON MD Location:[facility] Appointment Type:ENDO OV Future Scheduled Tests Laboratory* Thyroid Stimulating Hormone 10/22/21 * Thyroid Stimulating Hormone 08/02/22 * Free T4 10/22/21 * A1C Hemoglobin 10/22/21 * A1C Hemoglobin 08/02/22 * C-Peptide 10/22/21 * C-Peptide 08/02/22 * Lipid Profile 10/22/21 * Lipid Profile 08/02/22 * Insulin Level Total 08/02/22 * Microalbumin Level Urine 08/02/22 * Vitamin D Level 10/22/21 * Vitamin D Level 08/02/22 * Complete Metabolic Panel 10/22/21 * Complete Metabolic Panel 08/02/22 * anti-Thyroid Peroxidase 10/22/21 [facility] Evaluation + Plan note Future Appointments Appointment Date:07/30/2022 03:45:00 PM Scheduled Provider:MEGHA LAYTON MD Location:[facility] Appointment Type:ENDO OV Appointment Date:10/08/2022 03:00:00 PM Scheduled Provider:MEGHA LAYTON MD Location:[facility] Appointment Type:ENDO OV Future Scheduled Tests Laboratory* Thyroid Stimulating Hormone 10/22/21 * Thyroid Stimulating Hormone 08/02/22 * Free T4 10/22/21 * A1C Hemoglobin 10/22/21 * A1C Hemoglobin 08/02/22 * A1C Hemoglobin 10/07/22 * C-Peptide 10/22/21 * C-Peptide 08/02/22 * Lipid Profile 10/22/21 * Lipid Profile 08/02/22 * Lipid Profile 10/07/22 * Insulin Level Total 08/02/22 * Microalbumin Level Urine 08/02/22 * Microalbumin Level Urine 10/07/22 * Vitamin D Level 10/22/21 * Vitamin D Level 08/02/22 * Vitamin D Level 10/07/22 * Complete Metabolic Panel 10/22/21 * Complete Metabolic Panel 08/02/22 * Complete Metabolic Panel 10/07/22 * anti-Thyroid Peroxidase 10/22/21 [facility] Evaluation + Plan note Future Appointments Appointment Date:10/08/2022 03:00:00 PM Scheduled Provider:MEGHA LAYTON MD Location[facility] Appointment Type:END[facility] OV Future Scheduled Tests Laboratory* Thyroid Stimulating Hormone 10/22/21 * Thyroid Stimulating Hormone 08/02/22 * Thyroid Stimulating Hormone 06/23/22 * Free T4 10/22/21 * Free T4 06/23/22 * A1C Hemoglobin 10/22/21 * A1C Hemoglobin 08/02/22 * A1C Hemoglobin 10/07/22 * C-Peptide 10/22/21 * C-Peptide 08/02/22 * Lipid Profile 10/22/21 * Lipid Profile 08/02/22 * Lipid Profile 06/23/22 * Lipid Profile 10/07/22 * Insulin Level Total 08/02/22 * Lipoprotein (a) 06/23/22 * Microalbumin Level Urine 08/02/22 * Microalbumin Level Urine 10/07/22 * Vitamin D Level 10/22/21 * Vitamin D Level 08/02/22 * Vitamin D Level 10/07/22 * Complete Metabolic Panel 10/22/21 * Complete Metabolic Panel 08/02/22 * Complete Metabolic Panel 10/07/22 * anti-Thyroid Peroxidase 10/22/21 [facility] Evaluation + Plan note Future Appointments Appointment Date:04/15/2023 03:45:00 PM Scheduled Provider:MEGHA LAYTON MD Location:[facility] Appointment Type:ENDO OV Diagnostic Tests Pending * Glutamic Acid Decarboxylase 04/14/23 Future Scheduled Tests Laboratory* Basic Metabolic Panel 10/15/22 * Thyroid Stimulating Hormone 06/23/22 * Free T4 06/23/22 * Lipid Profile 06/23/22 * Lipoprotein (a) 06/23/22 * Albumin/Creatinine Ratio, Random Urine 04/10/23 * Albumin/Creatinine Ratio, Random Urine 04/14/23 [facility] Evaluation + Plan note Future Appointments Appointment Date:11/25/2023 09:00:00 AM Scheduled Provider: Location:[facility] Appointment Type:ENDO Nurse Appointment Date:02/10/2024 03:45:00 PM Scheduled Provider:MEGHA LAYTON MD Location:[facility] Appointment Type:ENDO OV Future Scheduled Tests Laboratory* Thyroid Stimulating Hormone 02/04/24 * Thyroid Stimulating Hormone 01/04/24 * Free T4 02/04/24 * A1C Hemoglobin 02/04/24 * A1C Hemoglobin 01/04/24 * Lipid Profile 02/04/24 * Lipid Profile 01/04/24 * Albumin/Creatinine Ratio, Random Urine 02/04/24 * Albumin/Creatinine Ratio, Random Urine 04/14/23 * Albumin/Creatinine Ratio, Random Urine 01/04/24 * Vitamin D Level 02/04/24 * Complete Metabolic Panel 02/04/24 * Complete Metabolic Panel 01/04/24 [facility] Evaluation + Plan note Future Appointments Appointment Date:06/30/2024 02:00:00 PM Scheduled Provider:HERBERTH PETERSON Location:[facility] Appointment Type:PC OV Appointment Date:10/18/2024 03:30:00 PM Scheduled Provider:HERBERTH PETERSON Location:[facility] Appointment Type: Wellness Annual Future Scheduled Tests Laboratory* Thyroid Stimulating Hormone 02/04/24 * Thyroid Stimulating Hormone 01/04/24 * Free T4 02/04/24 * A1C Hemoglobin 02/04/24 * A1C Hemoglobin 01/04/24 * Lipid Profile 02/04/24 * Lipid Profile 01/04/24 * Albumin/Creatinine Ratio, Random Urine 02/04/24 * Albumin/Creatinine Ratio, Random Urine 01/04/24 * Vitamin D Level 02/04/24 * Complete Metabolic Panel 02/04/24 * Complete Metabolic Panel 01/04/24 [facility] Evaluation + Plan note Future Appointments Appointment Date:10/18/2024 03:30:00 PM Scheduled Provider:HERBERTH PETERSON Location:[facility] Appointment Type:PC Wellness Annual Future Scheduled Tests Laboratory* Thyroid Stimulating Hormone 02/04/24 * Thyroid Stimulating Hormone 01/04/24 * Free T4 02/04/24 * A1C Hemoglobin 02/04/24 * A1C Hemoglobin 01/04/24 * Lipid Profile 02/04/24 * Lipid Profile 01/04/24 * Albumin/Creatinine Ratio, Random Urine 02/04/24 * Albumin/Creatinine Ratio, Random Urine 01/04/24 * Vitamin D Level 02/04/24 * Complete Metabolic Panel 02/04/24 * Complete Metabolic Panel 01/04/24 [facility] Evaluation note* Diagnosis Onset Date Resolution Status Admit Date Insulin pump titration chronic Oc 2024 1:16pm Presence of insulin pump chronic March 26, 2025 1:16pm Type 1 diabetes mellitus wit h hyperglycemia chronic March 26 1:16pm Vitamin D deficiency chronic Octo 2024 1:16pm [facility] Work Phone: Hospital course Narrative No data available for this section [facility] Hospital Discharge instructions No data available for this section [facility] Progress note No data available for this section [facility] Reason for referral (narrative)No reason for referral information availableMotion [facility] Work Phone: Summary Purpose Family History Relationship Condition Age at Onset Recorded Date/T derrek Not Specified Diabetes mellitus Unknown Alcoholism Unknown Raynaud's disease Unknown Cardiac disease Unknown Asthma Unknown Advance Directives No Advanced Directives Records FoundNo Advanced Directives Records FoundNo Advanced Directives Records FoundNo Advanced Directives Records Found Chief Complaint and Reason for Visit Chief Complaint Admit Date Diabetes July 20, 2024 1:20pm 3 M FU October 19, 2024 1:46p m Reason for Visit Admit Date Type 1 diabetes mellitus with hyperglyce asad July 20, 2024 1:20pm Chief Complaint Admit Date 5 M FU, RS 01/18March 26, 2025 1 :16pm Reason for Visit Admit Date Insulin pump titration March 26 1:16pm Presence of insulin pump March 26 1:16pm Type 1 diabetes mellitus with hyperglyce asad March 26, 2025 1:16pm Vitamin D deficiency March 26, 2025 1:16pm Additional Source Comments (unrecognized sect ion and content) No Status Records FoundNo Status Records FoundNo Status Records FoundNo Status Records Found INFORMATION SOURCE (unrecogn ized section and content) DATE CREATED AUTHOR 04/02/2018 [facility] DATE CREATED AUTHOR AUTHOR'S ORGANIZ ATION 11/05/2023 [facility] ([place] DATE CREATED AUTHOR AUTHOR'S ORGANIZ ATION 06/30/[address] [facility] DATE CREATED AUTHOR AUTHOR'S ORGANIZ ATION 03/27/2025 [facility] Care Team (unrecognized sect ion and content) Care Team Personnel Name: SONNY REYNOLDS Position: P4 Advanced Practice Nurse Med Service: Active Provider Member Role: Primary Care Physician Address: Address: [address] [place] [address] Care Team Related Persons Name: MARIBEL ROCA Care Team Personnel Name: SONNY REYNOLDS Position: P4 Advanced Practice Nurse Member Role: Primary Care Physician Address: Address: [address] [place] [address] Name: CATHY QUISPE DO Position: ED Physician Member Role: Attending Physician Address: Address: [address] Care Team Related Persons Name: MARIBEL ROCA Care Team Personnel Name: SONNY REYNOLDS Position: P4 Advanced Composite Bond Worker Member Role: Primary Care Physician Address: Address: [address] [place] [address] Care Team Related Persons Name: MARIBEL ROCA Patient Care team informatio n (unrecognized section and content) Team Status: Active Member Role Status Dates SHIVA TORRES Primary Care Provider Active Team Status: Inactive Member Role Status Dates SHIVA TORRES Primary Care Provider Active Start: July 20, 2024 End: July 20, 2024 SHIVA TORRES Referring Provider Active Sta rt: July 20, 2024 End: July 20, 2024 ROMINA Aguilar Attending Provider Active Start: July 20, 2024 End: July 20, 2024 Team Status: Inactive Member Role Status Dates SHIVA TORRES Primary Care Provider Active Start: October 19, 2024 End: October 19, 2024 SHIVA TORRES Referring Provider Active Sta rt: October 19, 2024 End: October 19, 2024 ROMINA Aguilar Attending Provider Active Start: October 19, 2024 End: October 19, 2024 Team Status: Active Member Role/Relationship Status Dates SHIVA TORRES Primary care physician Active Team Status: Inactive Member Role/Relationship Status Dates SHIVA TORRES Primary care physician Active Start: March 26, 2025 End: March 26, 2025 SHIVA TORRES Referring Provider Active Sta rt: March 26, 2025 End: March 26, 2025 ROMINA Aguilar Attending physician Active Start: March 26, 2025 End: March 26, 2025 Goals (unrecognized section and content) Goals may be documented in a n alternate section FOR RECORDS PERTAINING TO PATIENTS WHO ARE OR HAVE BEEN ENROLLED IN A CHEMICAL DEPENDENCY/SUBSTANCEABUSE PROGRAM, SOME INFORMATION MAY BE OMITTED. This clinical summary was aggregated from multiple sources. Caution should be exercised in using it in the provision of clinical care. This summary normalizes information from multiple sources, and as a consequence, information in this document may materially change the coding, format and clinical context of patient data. In addition, data may be omitted in some cases. CLINICAL DECISIONS SHOULD BE BASED ON THE PRIMARY CLINICAL RECORDS. [employer] provides no warranty or guarantee of the accuracy or completeness of information in this document.
[2025-05-07] MEDS: 0.9% Normal Saline (1000mL) 1,000 ML 999 ML IV (23:48)
[2025-05-07 23:49] VITALS: BP 98/52; PULSE 83; RESP 14; O2SAT 96
[2025-05-08] LABS: SITE Not entered; VBG BASE EXCESS -1 mmol/L (-1.0-3.5); VBG PO2 56 mmHg (25-40); VBG SO2 88 % (50-70); VBG TCO2 26 mmol/L (23-33)
[2025-05-08 00:13] LABS: Osmolality, Serum 308 mOsm/KG (275-295)
[2025-05-08 00:14] LABS: Anion Gap 12 (5-15); BETA-HYDROXYBUTYRATE 0.1 mmol/L (0.0-0.3); BUN 22 mg/dL (4-19); BUN/Creat Ratio 22.3 RATIO (10-20); Calcium,Total 9.4 mg/dL (7.6-11.0); Carbon Dioxide 24.0 mmol/L (21.0-32.0); Chloride 99 mmol/L (98-108); Estimated Creatinine Clearance 107.21 ml/min (50-250); Glucose 394 mg/dL (70-99); Magnesium 2.1 mg/dL (1.5-2.2); Potassium 4.3 mmol/L (3.3-5.1)
[2025-05-08 00:19] LABS: Hematocrit 42.4 % (40-54); Hemoglobin 15.3 g/dL (13.0-16.5); Immature Granulocytes Count 0.010 X10^3/uL (0.0-0.0); Mean Corp Hgb Conc 36.1 g/dL (32-36); Mean Corpuscular Volume 85.1 fL (80-94); Mean Platelet Vol. 9.7 fl (6.2-12.0); NRBC Flagged by Analyzer 0 % (0-5); Platelet Count 201 K/mm3 (150-450); RBC Distribution Width CV 11.9 % (11.6-14.6); RBC Distribution Width SD 36.6 fl (35.1-43.9); Red Blood Count 4.98 M/mm3 (4.6-6.2); White Blood Count 7.9 K/mm3 (4.4-11.0)
[2025-05-08 00:49] VITALS: BP 108/64; PULSE 77; RESP 14; O2SAT 97
[2025-05-08] MEDS: 0.9% Normal Saline (1000mL) 1,000 ML 999 ML IV (00:49)
--- NOTE | 2025-05-08 01:02 | EX.ED.DYSGE1 ---
HPI History of Present Illness Chief Complaint: Hyperglycemia Informant: patient and spouse/S.O. Narrative Narrative: Patient is a 34-year-old male who is a type I diabetic. He states he has been checking his blood sugars throughout the day using his implanted monitoring device. He states that it will tell him his blood sugar is low so he will eat carbs and noticed that it elevates but then shortly returns to a low value. He states that his insulin pump is functioning normally. He denies taking any other exogenous insulin sources or antidiabetic medication. He states that because his symptoms have been recurrent throughout the day and he is unsure what is causing the reported recurrent hypoglycemia he presents for evaluation. [facility] Medical History (Updated 05/08/25 @ 01:[address] Villa Noyola, DO) Type 1 diabetes Home Medications ?Medication ?Instructions ?Recorded ?Last Taken ?Type insulin degludec 100 unit/mL (3 15 unit subcut QHS 07/20/24 Unknown History mL) subcutaneous pen (Tresiba FlexTouch U-100 insulin) insulin pump cartridge,auto #1 ea 07/20/24 Unknown Rx dose,BT,G6/L2 with controller subcutaneous (Omnipod 5 Intro Kit(G6/Qjiep7Omvp) subcutaneous cartridge) insulin pump cartridge,auto #1 ea 08/28/24 Unknown Rx dose,BT,G6/G7 with controller subcutaneous (Omnipod 5 G6-G7 Intro Kit(Gen 5) subcutaneous cartridge and controller) insulin lispro 100 unit/mL 60 unit (0.6 mL) subcut QDAY #50 mL 11/03/24 Unknown Rx subcutaneous solution (Humalog U-100 Insulin) insulin pump cart,auto,BT,G6/7 #10 ea 02/28/25 Unknown Rx (Omnipod 5 G6-G7 Pods (Gen 5) subcutaneous cartridge) blood-glucose sensor (Dexcom G6 #9 ea 03/26/25 Unknown Rx Sensor device) blood-glucose transmitter (Dexcom #1 ea 03/26/25 Unknown Rx G6 Transmitter device) cholecalciferol (vitamin D3) 1,250 1,250 mcg PO .qoweek #12 caps 03/29/25 Unknown Rx mcg (50,000 unit) capsule blood sugar diagnostic (Accutrend #50 ea 05/08/25 Unknown Rx Glucose test strips) Allergy/AdvReac Type Severity Reaction Status Date / Time Penicillins Allergy Intermediate Rash Verified 05/07/25 22:47 Sulfa (Sulfonamide Allergy Intermediate Rash Verified 05/07/25 22:47 Antibiotics) Family History Other Alcoholism Asthma Diabetes Heart disease Raynauds disease Social History Smoking Status: Current every day smoker tobacco type: e-cigarettes Electronic Cigarette Use: with nicotine alcohol intake: current substance use type: does not use what type of physical activity do you participate in: walking frequency: daily ROS ROS ED Constitutional Constitutional ED: Denies chills or fever(s) Eyes Eyes: Denies change in vision ENT ENT ED: Denies sore throat Cardiovascular Cardiovascular: Denies chest pain Respiratory/Chest Respiratory/Chest: Denies cough or dyspnea Gastrointestinal Gastrointestinal: Denies abdominal pain, diarrhea, nausea or vomiting Musculoskeletal Musculoskeletal: Denies myalgias Integumentary Denies rash Neurologic Neurologic: Reports weakness; Denies headache(s) Hematologic/Lymphatic Hematologic/Lymphatic: Denies easy bleeding or easy bruising EXAM Physical Exam Const Vital Signs: 05/07/25 22:43 05/07/25 23:41 05/07/25 23:49 Temperature 98.2 F Temperature Source Oral Pulse Rate 85 83 Respiratory Rate 16 14 Respiratory Effort Normal Respiratory Pattern Normal Blood Pressure 133/73 H 98/52 L Blood Pressure Mean 93 67 Pulse Ox 100 96 Oxygen Delivery Method Room Air Room Air 05/08/25 00:49 05/08/25 01:51 Temperature 98 F Temperature Source Pulse Rate 77 70 Respiratory Rate 14 14 Respiratory Effort Respiratory Pattern Blood Pressure 108/64 93/63 Blood Pressure Mean 78 73 Pulse Ox 97 99 Oxygen Delivery Method Room Air Positive well nourished and well developed General Appearance ED: well developed; Negative for pallor HEENT Reports dry mucous membranes HEENT Narrative: Normocephalic atraumatic No tongue or lip swelling no oral lesions no airway edema or compromise No secondary findings in the posterior pharynx to suggest infection Mouth ED: Yes dry mucous membranes Mouth: dry mucous membranes Eyes PERRL and EOMs intact bilaterally General Eye ED: Negative for scleral icterus Neck supple Neck Narrative: No nuchal rigidity or meningeal signs Resp normal respiratory effort Resp Narrative: Patient has faint rhonchi in the bilateral lower lobes consistent with history of vaping but no signs of respiratory distress Cardio regular rate and regular rhythm GI normal to inspection, nondistended, normoactive bowel sounds, non-tender, non-distended and no masses GI Narrative: No voluntary guarding or rigidity or pulsatile mass Auscultation: normoactive bowel sounds Palpation: soft Extremity normal to inspection Neuro oriented x3, CN's II-XII intact bilaterally and no sensory deficits noted Sensorium / Orientation: alert Motor Exam: strength 5/5 throughout Psych mental status grossly normal Skin no rashes or lesions noted General Skin Exam: Negative for jaundice or pallor MDM MDM MDM Narrative Medical decision making narrative: Patient arrived to the ER with stable vitals. He reported his insulin monitor had been reading low over currently throughout the day. In order to assess for potentially device malfunction a fingerstick Accu-Chek was performed. When this was performed it came back elevated at about 500. This would indicate that the patient's meter is malfunctioning and with his sensation of feeling unwell and hyperglycemia there is concern he may have placed himself in DKA or HHS. Secondary to this basic labs were obtained. The patient's VBG shows a pH of 7.37 going against acidosis his beta-hydroxybutyrate is normal at 0.1 and his anion gap is not elevated indicating he is not in DKA. His serum osmolality is also less than 320 going against HHS. The remainder of his labs reveal no clinically significant electrolyte abnormality or findings of acute kidney injury. He was given 2 L of IV fluid and his blood sugar improved therefore his vitals are stable workup reveals no sign of DKA or HHS and we have a reason for his report of hyperglycemia and the fact there is been device malfunction there is no need for further intervention he is otherwise safe for discharge History & Record Review Discussion w/independent historian: Patient and Significant other Lab Data Attestation: I reviewed the patient's lab results. Labs: Laboratory Results - last 24 hr 05/07/25 05/07/25 05/07/25 22:42 23:13 23:50 WBC 7.9 RBC 4.98 Hgb 15.3 Hct 42.4 MCV 85.1 MCH 30.7 MCHC 36.1 H RDW Std Deviation 36.6 RDW Coeff of Vidhya 11.9 Plt Count 201 MPV 9.7 Immature Gran % (Auto) 0.100 Neut % (Auto) 63.0 Lymph % (Auto) 24.9 [place] % (Auto) 9.6 Eos % (Auto) 1.9 Baso % (Auto) 0.5 Absolute Neuts (auto) 5.0 Absolute Lymphs (auto) 1.97 Nucleated RBC % 0 Sodium 135 Potassium 4.3 Chloride 99 Carbon Dioxide 24.0 Anion Gap 12 BUN 22 H Creatinine 0.98 Estim Creat Clear Calc 107.21 Est GFR (MDRD) Non-Af 105 BUN/Creatinine Ratio 22.3 H Glucose 394 H Serum Osmolality 308 H Calcium 9.4 Magnesium 2.1 b-Hydroxybutyric mmol/L 0.1 POC Glucose > 500 H* > 500 H* 05/08/25 05/08/25 00:48 01:50 WBC RBC Hgb Hct MCV MCH MCHC RDW Std Deviation RDW Coeff of Vidhya Plt Count MPV Immature Gran % (Auto) Neut % (Auto) Lymph % (Auto) [place] % (Auto) Eos % (Auto) Baso % (Auto) Absolute Neuts (auto) Absolute Lymphs (auto) Nucleated RBC % Sodium Potassium Chloride Carbon Dioxide Anion Gap BUN Creatinine Estim Creat Clear Calc Est GFR (MDRD) Non-Af BUN/Creatinine Ratio Glucose Serum Osmolality Calcium Magnesium b-Hydroxybutyric mmol/L POC Glucose 276 H 307 H ABG Data ABG results: ABG 05/07/25 23:57 Specimen Type KAR Sample Site Not entered VBG pH 7.37 VBG pO2 56 H VBG HCO3 25 VBG Total CO2 26 VBG O2 Sat (Calc) 88 H VBG Base Excess -1 POC Mix VBG pCO2 Pt Tmp 42.2 O2 Delivery Device Room Air Discharge Plan Triage Chief Complaint: Hyperglycemia ED Provider: Villa Noyola Dx/Rx/DC Orders Clinical Impression: Acute hyperglycemia, Type 1 diabetes mellitus, Malfunction of device Instructions: ED Diabetic Hyperglycemia Prescriptions: New (DME) Accutrend Glucose test strips Strip See Rx Instructions .Route Qty: 50 2RF Rx Instructions: As directed No Action insulin degludec [Tresiba FlexTouch U-100] 100 unit/mL (3 mL) insulin pen 15 unit subcut QHS (DME) Omnipod 5 Intro(G6/[id number]) Cartridge See Rx Instructions .Route Qty: 1 0RF Rx Instructions: As directed (DME) PlayCraftercom G6 Sensor Device See Rx Instructions .Route Qty: 9 1RF Rx Instructions: 1 sensor q 10 days (DME) Dexcom G6 Transmitter Device See Rx Instructions .Route Qty: 1 1RF Rx Instructions: 1 transmitter q 90 days (DME) Omnipod 5 G6-G7 Intro Kt(Gen5) Cartridge See Rx Instructions .Route Qty: 1 0RF Rx Instructions: As directed insulin lispro [Humalog U-100 Insulin] 100 unit/mL solution 60 unit subcut QDAY Qty: 50 2RF Rx Instructions: via insulin pump (DME) Omnipod 5 G6-G7 Pods (Gen 5) Cartridge See Rx Instructions .Route Qty: 10 5RF Rx Instructions: 1 pod every 72 hours cholecalciferol (vitamin D3) 1,250 mcg (50,000 unit) capsule 1,250 mcg PO .qoweek Qty: 12 1RF Stand Alone Forms: ED Work / School Excuse Primary Care Provider: HERBERTH PETERSON Referrals: HERBERTH PETERSON CRNP [Primary Care Provider, Family Practice] Activity Restrictions/Additional Instructions: Your workup today revealed no signs of DKA or HHS. Also the fact that your monitor was reading low but your Accu-Chek by fingerstick revealed your blood sugar was elevated indicates the device is malfunctioning. Therefore monitor your glucose levels using the Accu-Chek strips and follow-up with your doctor for repeat evaluation. Return to the ER should you have any further concerns Print Language: Turkish Disposition Disposition: Home, Self Care Discharge Date/Time: 05/08/25 01:52
[2025-05-08 01:51] VITALS: BP 93/63; PULSE 70; RESP 14; TEMP 36.6; O2SAT 99
== END 2025-05-08 01:52 | disposition home or self-care (01) ==
PROVIDERS: Emergency Provider Emergency Medicine; PCP Nurse Practitioner Adult Health; Visit Provider Emergency Medicine
DX: E10.65 Type 1 diabetes mellitus with hyperglycemia (principal); F17.210 Nicotine dependence, cigarettes, uncomplicated; T85.618A Breakdown (mechanical) of other specified internal prosthetic devices, implants and grafts, initial encounter; Z96.41 Presence of insulin pump (external) (internal)
CPT/HCPCS: 80048; 82010; 82803; 82962; 83735; 83930; 85025; 96360; 96361; 99283; A4216